=== PATIENT | female | born 1965 | race American Indian/Alaskan Native ===

== ENCOUNTER 2020-06-30 13:10 | Emergency (ER) | payer MEDICAID ==
[2020-06-30 14:46] VITALS: BP 162/69
--- NOTE | 2020-06-30 17:26 | XRay Report ---
LEFT SHOULDER 3 VIEWS 1523 INDICATION: glass globe hit shoulder COMPARISON: None available. FINDINGS: Artifact overlies the image. Rotator cuff calcifications are noted. No fractures or disloca tions are seen. Signer Name: Hayden Ahuja MD Signed: 06/30/2020 5:21 PM Workstation Name: [id number]
--- NOTE | 2020-06-30 18:10 | Cat Scan Report ---
CT HEAD WITHOUT CONTRAST INDICATION: glass globe hit head TECHNIQUE: All CT scans at this location are performed using CT dose reduction for ALARA by means of automated exposure control. COMPARISON: None available. FINDINGS: BRAIN: No hemorrhage or mass effect are seen. No evidence of acute infarction is noted. White matter microvascular changes are noted, more on the left. 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 Mild atrophic changes are seen disproportionate to the patient's age. ORBITS: Normal as visualized. SOFT TISSUES OF HEAD: Normal. CALVARIUM: Normal. VISUALIZED PARANASAL SINUSES AND MASTOID AIR CELLS: Clear. ADDITIONAL FINDINGS: None. IMPRESSION: No acute intracranial abnormality. Signer Name: Hayden Ahuja MD Signed: 06/30/2020 6:05 PM Workstation Name: [id number]
--- NOTE | 2020-06-30 18:17 | Emergency Department Report ---
ED Head Trauma HPI - General Chief complaint: Head Injury Stated complaint: HEAD PAIN Time Seen by Provider: 06/30/20 16:50 Source: EMS Mode of arrival: Wheelchair Limitations: No Limitations - History of Present Illness Initial comments: Patient is a 55-year-old female presents emergency room complaints of a head injury that occurred earlier today. She states that a glass down from a ceiling light fell onto her head and hit her left shoulder. She states that it caused her to have headache and shoulder pain. She states initially she felt a little lightheaded and had some mild blurry vision which have both resolved. She denies any loss of consciousness, vomiting, numbness, weakness, bowel or bladder incontinence. Past medical history of DM, HTN, HLD, [place] with CABG, stents in the legs and the heart, CVA, right leg amputation. She states that she is on Plavix but denies any other blood thinners. She has an allergy to Percocet, Metformin, and penicillin - Related Data Previous Rx's Medication Instructions Recorded Last Taken Type Acetaminophen [Tylenol] 650 mg PO Q8HR PRN #20 capsule 06/30/20 Unknown Rx methOCARBAMOL [Robaxin TAB] 500 mg PO BID PRN #14 tab 06/30/20 Unknown Rx Allergies/Adverse reactions: Allergies Allergy/AdvReac Type Severity Reaction Status Date / Time acetaminophen [From Percocet] Allergy Vomiting Verified 06/30/20 14:45 metformin Allergy Unknown Verified 06/30/20 14:45 oxycodone [From Percocet] Allergy Vomiting Verified 06/30/20 14:45 Penicillins Allergy Unknown Verified 06/30/20 14:45 ED Review of Systems ROS: Stated complaint: HEAD PAIN Other details as noted in HPI Comment: All other systems reviewed and negative ED Past Medical Hx - Past Medical History Previous Medical History?: Yes Hx Hypertension: Yes Hx CVA: Yes Hx Diabetes: Yes Additional medical history: BKA 04/2020 - Surgical History Past Surgical History?: Yes Hx Open Heart Surgery: Yes (6 stents) - Medications Home Medications: Home Medications Medication Instructions Recorded Confirmed Last Taken Type Acetaminophen [Tylenol] 650 mg PO Q8HR PRN #20 capsule 06/30/20 Unknown Rx methOCARBAMOL [Robaxin TAB] 500 mg PO BID PRN #14 tab 06/30/20 Unknown Rx ED Physical Exam - General Limitations: No Limitations - Head Head exam: Present: atraumatic, normocephalic - Eye Eye exam: Present: normal appearance, PERRL, EOMI. Absent: scleral icterus, conjunctival injection, nystagmus, periorbital swelling, periorbital tenderness - ENT ENT exam: Present: mucous membranes moist - Neck Neck exam: Present: normal inspection, full ROM. Absent: tenderness, meningismus - Respiratory Respiratory exam: Present: normal lung sounds bilaterally. Absent: respiratory distress, wheezes, rales, rhonchi, stridor, chest wall tenderness, accessory muscle use, decreased breath sounds, prolonged expiratory - Cardiovascular Cardiovascular Exam: Present: regular rate, normal rhythm, normal heart sounds. Absent: systolic murmur, diastolic murmur, rubs, gallop - Extremities Exam Extremities exam: Present: other (mild ttp to the left trapezius muscle, no bony ttp of the LUE, FROM of the LUE with discomfort upon full flexion, no edema or ecchymosis, no sulcus sign, clavicles are equal, no clavicular ttp, neurovascularly intact) - Neurological Exam Neurological exam: Present: alert, oriented X3, CN II-XII intact. Absent: motor sensory deficit - Psychiatric Psychiatric exam: Present: normal affect, normal mood - Skin Skin exam: Present: warm, dry, intact ED Course Vital Signs 06/30/20 14:46 Temperature 98.3 F Pulse Rate 64 Respiratory 18 Rate Blood Pressure 162/69 [Right] O2 Sat by Pulse 97 Oximetry - Radiology Data Radiology results: report reviewed Ordering Physician: RAQUEL PEREZ Date of Service: 06/30/20 Procedure(s): XR shoulder 2+V LT Accession Number(s): [id number] cc: RAQUEL PEREZ Fluoro Time In Minutes: LEFT SHOULDER 3 VIEWS 1523 INDICATION: glass globe hit shoulder COMPARISON: None available. FINDINGS: Artifact overlies the image. Rotator cuff calcifications are noted. No fractures or dislocations are seen. Signer Name: Hayden Ahuja MD Signed: 06/30/2020 5:21 PM Workstation Name: [id number] Transcribed By: YOON Dictated By: Hayden Ahuja MD Electronically Authenticated By: Hayden Ahuja MD Signed Date/Time: 06/30/201720 DD/ 19 TD/TT: Print Cancel Ordering Physician: RAQUEL PEREZ Date of Service: 06/30/20 Procedure(s): CT head/brain wo con Accession Number(s): [id number] cc: RAQUEL PEREZ CT HEAD WITHOUT CONTRAST INDICATION: glass globe hit head TECHNIQUE: All CT scans at this location are performed using CT dose reduction for ALARA by means of automated exposure control. COMPARISON: None available. FINDINGS: BRAIN: No hemorrhage or mass effect are seen. No evidence of acute infarction is noted. White matter microvascular changes are noted, more on the left. 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 Mild atrophic changes are seen disproportionate to the patient's age. ORBITS: Normal as visualized. SOFT TISSUES OF HEAD: Normal. CALVARIUM: Normal. VISUALIZED PARANASAL SINUSES AND MASTOID AIR CELLS: Clear. ADDITIONAL FINDINGS: None. IMPRESSION: No acute intracranial abnormality. Signer Name: Hayden Ahuja MD Signed: 06/30/2020 6:05 PM Workstation Name: [id number] Transcribed By: GJ Dictated By: Hayden Ahuja MD Electronically Authenticated By: Hayden Ahuja MD Signed Date/Time: 06/30/201804 DD/ 00 TD/TT: Print - Medical Decision Making Patient is a 55-year-old female presents emergency room complaints of a head injury that occurred earlier today. She states that a glass down from a ceiling light fell onto her head and hit her left shoulder. She states that it caused her to have headache and shoulder pain. She states initially she felt a little lightheaded and had some mild blurry vision which have both resolved. She denies any loss of consciousness, vomiting, numbness, weakness, bowel or bladder incontinence. Past medical history of DM, HTN, HLD, [place] with CABG, stents in the legs and the heart, CVA, right leg amputation. She states that she is on Plavix but denies any other blood thinners. She has an allergy to Percocet, Metformin, and penicillin. XR left shoulder: FINDINGS: Artifact overlies the image. Rotator cuff calcifications are noted. No fractures or dislocations are seen. CT head: IMPRESSION: No acute intracranial abnormality. Discussed all results with patient and answered questions. Given prescription for Tylenol and Robaxin. Advised patient Please take medication as prescribed as needed. Do not drive or operate machinery while taking muscle relaxer Robaxin. May use ice pack, heating pad, rest, and epsom salt bath. Follow-up with a primary care doctor. Return to emergency room for any new or worsening symptoms. - NEXUS Criteria Focal neurological deficit present: No Midline spinal tenderness present: No Altered level of consciousness: No Intoxication present: No Distracting injury present: No NEXUS results: C-Spine can be cleared clinically by these results. Imaging is not required. Critical care attestation.: If time is entered above; I have spent that time in minutes in the direct care of this critically ill patient, excluding procedure time. ED Disposition Clinical Impression: Head injury Qualifiers: Encounter type: initial encounter Qualified Code(s): S09.90XA - Unspecified injury of head, initial encounter Left shoulder pain Qualifiers: Chronicity: acute Qualified Code(s): M25.512 - Pain in left shoulder Disposition: DC-01 TO HOME OR SELFCARE Is pt being admited?: No Does the pt Need Aspirin: No Condition: Stable Instructions: Head Injury, Adult, Musculoskeletal Pain Additional Instructions: Please take medication as prescribed as needed. Do not drive or operate machine ry while taking muscle relaxer Robaxin. May use ice pack, heating pad, rest, and epsom salt bath. Follow-up with a primary care doctor. Return to emergency room for any new or worsening symptoms. Prescriptions: methOCARBAMOL [Robaxin TAB] 500 mg PO BID PRN #14 tab PRN Reason: pain/muscle spasm Acetaminophen [Tylenol] 650 mg PO Q8HR PRN #20 capsule PRN Reason: pain Referrals: your, primary care doctor [Other] - 2-3 Days Time of Disposition: 18:18 Print Language: ETHIOPIAN
== END 2020-06-30 18:51 | disposition home or self-care (01) ==
LOC: ED 13:10
DX: S09.90XA Unspecified injury of head, initial encounter (principal); M25.512 Pain in left shoulder; I10 Essential (primary) hypertension; E11.9 Type 2 diabetes mellitus without complications; Z98.890 Other specified postprocedural states; Z79.899 Other long term (current) drug therapy; Z86.73 Personal history of transient ischemic attack (TIA), and cerebral infarction without residual deficits; Z88.0 Allergy status to penicillin; Z88.8 Allergy status to other drugs, medicaments and biological substances; W22.8XXA Striking against or struck by other objects, initial encounter; Y93.89 Activity, other specified; Y92.89 Other specified places as the place of occurrence of the external cause; Y99.8 Other external cause status
CPT/HCPCS: 70450

== ENCOUNTER 2020-07-19 06:08 | Inpatient (IN) | payer MEDICAID ==
[2020-07-19] MEDS ORDERED: ASPIRIN 325 MG TAB PO ONE (06:19)
--- NOTE | 2020-07-19 06:47 | Emergency Department Report ---
ED Chest Pain HPI - General Chief Complaint: Chest Pain Stated Complaint: CHEST PAIN Time Seen by Provider: 07/19/20 06:36 Source: patient, EMS Mode of arrival: Stretcher Limitations: Physical Limitation - History of Present Illness Initial Comments: Patient is 55 years old female with multiple past medical history including SD with CABG, hypertension, diabetes and recent right below-knee amputation secondary to peripheral vascular disease. Patient brought to the emergency room complaining of sudden onset of chest pain. Patient stated that is on the right side. She described the pain as sharp with no radiation. Patient denied any fever or chills. Patient also denied any nausea or vomiting. MD Complaint: chest pain -: Sudden, This morning Onset: during rest Pain Location: right chest Severity scale (0 -10): 5 Quality: sharp - Related Data Previous Rx's Medication Instructions Recorded Last Taken Type Acetaminophen [Tylenol] 650 mg PO Q8HR PRN #20 capsule 06/30/20 Unknown Rx methOCARBAMOL [Robaxin TAB] 500 mg PO BID PRN #14 tab 06/30/20 Unknown Rx Allergies Allergy/AdvReac Type Severity Reaction Status Date / Time acetaminophen [From Percocet] Allergy Vomiting Verified 06/30/20 14:45 metformin Allergy Unknown Verified 06/30/20 14:45 oxycodone [From Percocet] Allergy Vomiting Verified 06/30/20 14:45 Penicillins Allergy Unknown Verified 06/30/20 14:45 Heart Score - HEART Score History: Slightly suspicious EKG: Non-specific Age: 45-65 Risk factors: > 3 risk factors or hx of atherosclerotic disease Troponin: < normal limit HEART Score: 4 - EKG Read Time Time EKG Completed: 06:48 EKG Read Time: 06:50 ED Review of Systems ROS: Stated complaint: CHEST PAIN Other details as noted in HPI Comment: All other systems reviewed and negative Constitutional: denies: chills, fever Respiratory: denies: cough, shortness of breath, wheezing Cardiovascular: chest pain. denies: palpitations, dyspnea on exertion Gastrointestinal: denies: abdominal pain, nausea, vomiting Musculoskeletal: denies: back pain Neurological: denies: headache ED Past Medical Hx - Past Medical History Previous Medical History?: Yes Hx Hypertension: Yes Hx CVA: Yes Hx Diabetes: Yes Additional medical history: BKA 04/2020 - Surgical History Past Surgical History?: Yes Hx Open Heart Surgery: Yes (6 stents) - Social History Smoking Status: Former Smoker Substance Use Type: None - Medications Home Medications: Home Medications Medication Instructions Recorded Confirmed Last Taken Type Acetaminophen [Tylenol] 650 mg PO Q8HR PRN #20 capsule 06/30/20 Unknown Rx methOCARBAMOL [Robaxin TAB] 500 mg PO BID PRN #14 tab 06/30/20 Unknown Rx ED Physical Exam - General Limitations: Physical Limitation General appearance: alert, in no apparent distress - Head Head exam: Present: atraumatic, normocephalic, normal inspection - Eye Eye exam: Present: normal appearance, PERRL - ENT ENT exam: Present: normal exam, normal orophraynx, mucous membranes moist - Neck Neck exam: Present: normal inspection, full ROM. Absent: tenderness, meningismus - Respiratory Respiratory exam: Present: normal lung sounds bilaterally - Cardiovascular Cardiovascular Exam: Present: regular rate, normal rhythm, normal heart sounds - GI/Abdominal GI/Abdominal exam: Present: soft, normal bowel sounds. Absent: distended, tenderness, guarding, rebound, rigid, organomegaly, mass, bruit, pulsatile mass, hernia - Extremities Exam Extremities exam: Present: other (Right below-knee amputation.) - Back Exam Back exam: Present: normal inspection, full ROM - Neurological Exam Neurological exam: Present: alert, oriented X3, CN II-XII intact - Skin Skin exam: Present: warm, intact, normal color ED Course Vital Signs 07/19/20 06:22 Temperature 98 F Pulse Rate 73 Respiratory 19 Rate Blood Pressure 175/104 [Left] O2 Sat by Pulse 99 Oximetry ED Medical Decision Making - Lab Data Result diagrams: 07/19/20 07:09 07/19/20 07:09 - EKG Data -: EKG Interpreted by Nm EKG shows normal: sinus rhythm Rate: normal - EKG Data Interpretation: no acute changes - Radiology Data Radiology results: report reviewed - Medical Decision Making Patient is 55 years old female with multiple past medical history including SD with CABG, hypertension, diabetes and recent right below-knee amputation secondary to peripheral vascular disease. Patient brought to the emergency room complaining of sudden onset of chest pain. Patient stated that is on the right side. She described the pain as sharp with no radiation. Patient denied any fever or chills. Patient also denied any nausea or vomiting. EKG showed no evidence of ST elevation. Labs reviewed and showed slightly elevated troponin. I discussed the patient with Dr. Osorio, artists' model on- call. Patient also discussed with , he agreed to admit the patient to medical service for further management. Critical Care Time: Yes Critical care time in (mins) excluding proc time.: 30 Critical care attestation.: If time is entered above; I have spent that time in minutes in the direct care of this critically ill patient, excluding procedure time. ED Disposition Clinical Impression: Non-STEMI (non-ST elevated myocardial infarction) Disposition: -09 OP ADMIT IP TO THIS HOSP Is pt being admited?: Yes Condition: Stable Referrals: PRIMARY CARE, [Primary Care Provider] - 3-5 Days
--- NOTE | 2020-07-19 06:58 | XRay Report ---
CHEST 1 VIEW INDICATION: chest pain COMPARISON: FINDINGS: SUPPORT DEVICES: None. HEART / MEDIASTINUM: No significant abnormality. LUNGS / PLEURA: No significant pulmonary or pleural abnormality. No pneumothorax. ADDITIONAL FINDINGS: IMPRESSION: 1. No acute cardiopulmonary disease Signer Name: Wilfredo Arriaga MD Signed: 07/19/2020 6:53 AM Workstation Name: [id number]
[2020-07-19 07:23] LABS: Basophils # (Auto) 0.1 K/mm3 (0.0-0.1); Basophils % (Auto) 1.2 % (0.0-1.8); Eosinophils # (Auto) 0.2 K/mm3 (0.0-0.4); Eosinophils % (Auto) 2.4 % (0.0-4.3); Hematocrit 33.9 % (30.3-42.9); Hemoglobin 11.4 gm/dl (10.1-14.3); Lymphocytes # (Auto) 2.2 K/mm3 (1.2-5.4); Mean Corpuscular HGB Conc 34 % (30-34); Mean Corpuscular Volume 82 fl (79-97); Monocytes # (Auto) 0.5 K/mm3 (0.0-0.8); Monocytes % (Auto) 6.6 % (0.0-7.3); Platelet Count 313 K/mm3 (140-440); Red Blood Count 4.14 M/mm3 (3.65-5.03)
[2020-07-19 07:38] LABS: INR 1.07 (0.87-1.13)
[2020-07-19 07:39] LABS: Partial Thromboplastin Time 30.3 Sec. (24.2-36.6)
[2020-07-19 07:48] LABS: Calcium 8.6 mg/dL (8.4-10.2)
[2020-07-19 11:21] LABS: Chol/HDL Ratio 6.6 %
--- NOTE | 2020-07-19 11:42 | Nuclear Medicine Report ---
NUCLEAR MEDICINE PERFUSION LUNG SCAN INDICATION / CLINICAL INFORMATION: Chest pain and elevated d-dimer. TECHNIQUE: 5.5 mCi of Tc-99m MAA were given by IV. COMPARISON: Chest radiograph dated 07/19/20 at 6:29 AM. FINDINGS: PERFUSION: No significant perfusion defects. ADDITIONAL FINDINGS: None. IMPRESSION: Very low probability for pulmonary embolism. Signer Name: Luke Marrero MD Signed: 07/19/2020 11:38 AM Workstation Name: [id number]
[2020-07-19] MEDS ORDERED: ALBUTEROL 2.5 MG/3 ML NEBU IH PRN (13:12)
[2020-07-19] MEDS ORDERED: NITROGLYCERIN 0.4 MG TAB SUBL SL PRN (13:12)
[2020-07-19] MEDS ORDERED: ACETAMINOPHEN 325 MG TAB PO PRN ×2 (13:12)
[2020-07-19] MEDS ORDERED: ONDANSETRON 4 MG/2 ML INJ IV PRN (13:12)
--- NOTE | 2020-07-19 13:12 | History and Physical Report ---
History of Present Illness Chief complaint: My chest hurts History of present illness: 55 YO Female HTN, CVA, DM, CAD S/P Stent Placement, PVD presents to ED for evaluation. Patient reports "my chest hurts. Patient states that she has experienced a sudden onset of pain in her chest that began 2 hours prior to transportation to the hospital. Patient states that pain is 57/10, intermittent, worsened with exertion, relieved with rest, sharp, crushing in nature, nonradiating, localized to the right side of the chest. EMS was notified and upon arrival the patient was found to be in distress and subsequently transported to [facility] for further care and evaluation of the aforementioned symptoms. The patient was seen and evaluated in the emergency department. All lab and imaging studies reviewed. Patient found to have non-ST elevation [place] complicated by angina, as well as accelerated hypertension. The patient admitted to telemetry and initiated on ACS protocol. Patient initiated on therapeutic anticoagulation. Cardiology team consulted in ED. Patient denies fever, chills, palpitations, productive cough, skin rash, recent ill contacts, unilateral leg swelling, calf pain, prolonged travel/immobility, ind ividual/family history of DVT/PE/bleeding/blood clotting disorders, or known exposure to COVID-19. No prior admission for review. No medication listed at time of admission for reconciliation. Past History Past Medical History: CAD, diabetes, hypertension, stroke Past Surgical History: Other (DKA, cardiac stent placement) Social history: single. denies: smoking, alcohol abuse, prescription drug abuse Family history: diabetes, hypertension Medications and Allergies Allergies Allergy/AdvReac Type Severity Reaction Status Date / Time acetaminophen [From Percocet] Allergy Vomiting Verified 06/30/20 14:45 metformin Allergy Unknown Verified 06/30/20 14:45 oxycodone [From Percocet] Allergy Vomiting Verified 06/30/20 14:45 Penicillins Allergy Unknown Verified 06/30/20 14:45 Home Medications Medication Instructions Recorded Confirmed Last Taken Type Acetaminophen [Tylenol] 650 mg PO Q8HR PRN #20 capsule 06/30/20 07/19/20 07/17/20 10:00 Rx methOCARBAMOL [Robaxin TAB] 500 mg PO BID PRN #14 tab 06/30/20 07/19/20 07/17/20 10:00 Rx Review of Systems Constitutional: no weight loss, no fever, no chills, no night sweats Ears, nose, mouth and throat: no ear pain, no tinnitis, no decreased hearing, no sinus pressure Breasts: no change in shape, no mass Cardiovascular: chest pain, no palpitations, no edema, no syncope, no paroxysmal nocturnal dyspnea, no high blood pressure Respiratory: no cough, no cough with sputum, no excessive sputum, no shortness of breath Gastrointestinal: nausea, vomiting, no abdominal pain, no diarrhea Genitourinary Female: no pelvic pain, no flank pain, no dysuria, no urinary frequency, no urgency Rectal: no pain, no incontinence, no bleeding Musculoskeletal: no neck pain, no leg numbness/tingling Integumentary: no deferred, no rash, no pruritis, no sores, no wounds, no jaundice Neurological: no head injury, no parathesias, no tingling, no ataxia Psychiatric: no memory loss, no change in sleep habits, no insomnia, no change in libido, no disorientation, no hallucinations Endocrine: no heat intolerance, no polyphagia, no nocturia, no proptosis, no palpatations, no recent glucocorticoid use Hematologic/Lymphatic: no easy bruising, no easy bleeding, no lymphadenopathy Allergic/Immunologic: no urticaria, no persistent infections Exam - Constitutional Vitals: Temp Pulse Resp BP Pulse Ox 98 F 73 19 175/104 99 07/19/20 06:22 07/19/20 06:22 07/19/20 06:22 07/19/20 06:22 07/19/20 06:22 General appearance: Present: mild distress - EENT Eyes: Present: PERRL ENT: hearing intact, clear oral mucosa - Neck Neck: Present: supple, normal ROM - Respiratory Respiratory effort: normal Respiratory: bilateral: CTA - Cardiovascular Heart Sounds: Present: S1 & S2. Absent: rub, click - Extremities Extremities: pulses symmetrical, No edema Peripheral Pulses: within normal limits - Abdominal General gastrointestinal: Present: soft, non-tender, non-distended, normal bowel sounds Female genitourinary: Present: normal - Integumentary Integumentary: Present: clear, warm, dry - Musculoskeletal Musculoskeletal: gait normal, strength equal bilaterally - Psychiatric Psychiatric: appropriate mood/affect, intact judgment & insight - Neurologic Neurologic: CNII-XII intact, moves all extremities HEART Score - HEART Score EKG: Non-specific Age: 45-65 Risk factors: > 3 risk factors or hx of atherosclerotic disease Troponin: Troponin T 0.060 ng/mL (0.00-0.029) H D 07/19/20 09:23 Troponin: < normal limit Results - Labs CBC & Chem 7: 07/19/20 13:20 07/19/20 13:20 Labs: Abnormal lab results 07/19/20 07/19/20 07/19/20 Range/Units 07:09 07:09 07:09 MCH 27 L (28-32) pg D-Dimer 981.95 H (0-234) ng/mlDDU Sodium 134 L (137-145) mmol/L Chloride 96.6 L (98-107) mmol/L Creatinine 1.5 H (0.6-1.2) mg/dL Glucose 385 H (65-100) mg/dL Troponin T (0.00-0.029) ng/mL Albumin 3.0 L (3.9-5) g/dL Triglycerides (2-149) mg/dL Cholesterol (50-199) mg/dL LDL Cholesterol Direct (50-130) mg/dL HDL Cholesterol (40-59) mg/dL 07/19/20 Range/Units 09:23 MCH (28-32) pg D-Dimer (0-234) ng/mlDDU Sodium (137-145) mmol/L Chloride (98-107) mmol/L Creatinine (0.6-1.2) mg/dL Glucose (65-100) mg/dL Troponin T 0.060 H D (0.00-0.029) ng/mL Albumin (3.9-5) g/dL Triglycerides 216 H (2-149) mg/dL Cholesterol 218 H (50-199) mg/dL LDL Cholesterol Direct 156 H (50-130) mg/dL HDL Cholesterol 33 L (40-59) mg/dL Assessment and Plan - Patient Problems (1) Non-STEMI (non-ST elevated myocardial infarction) Current Visit: Yes Status: Acute Plan to address problem: Serial cardiac enzymes, EKG, therapeutic anticoagulation, cardiology team consulted in the emergency department, telemetry monitoring, morphine, submental oxygen, nitro, aspirin, supportive care, blood pressure control. (2) Angina at rest Current Visit: Yes Status: Acute Plan to address problem: Serial cardiac enzymes, EKG, pain control, supportive care. (3) Accelerated hypertension Current Visit: Yes Status: Acute Plan to address problem: Monitor blood pressure every shift, continue medical management, hydralazine 10 mg IV every 6 hours as needed for systolic blood pressure greater than or equal to 155 mmHg (4) Diabetes Current Visit: Yes Status: Acute Plan to address problem: Consistent carbohydrate diet, Accu-Chek, insulin protocol, hypoglycemia protocol (5) DVT prophylaxis Current Visit: Yes Status: Acute Plan to address problem: SCD bilateral lower extremities while in bed, therapeutic anticoagulation.
[2020-07-19 13:42] LABS: Basophils # (Auto) 0.1 K/mm3 (0.0-0.1); Basophils % (Auto) 1.1 % (0.0-1.8); Eosinophils # (Auto) 0.1 K/mm3 (0.0-0.4); Eosinophils % (Auto) 1.9 % (0.0-4.3); Hematocrit 34.6 % (30.3-42.9); Hemoglobin 11.8 gm/dl (10.1-14.3); Lymphocytes # (Auto) 2.7 K/mm3 (1.2-5.4); Lymphocytes % (Auto) 39.4 % (13.4-35.0); Mean Corpuscular HGB Conc 34 % (30-34); Mean Corpuscular Volume 83 fl (79-97); Monocytes # (Auto) 0.5 K/mm3 (0.0-0.8); Monocytes % (Auto) 6.7 % (0.0-7.3); Platelet Count 307 K/mm3 (140-440); Red Blood Count 4.17 M/mm3 (3.65-5.03); Red Cell Distribution Width 14.4 % (13.2-15.2)
[2020-07-19] MEDS ORDERED: ENOXAPARIN 100 MG/1 ML INJ SUB-Q SCH (16:20)
[2020-07-19] MEDS: traMADol 50 MG TAB PO PRN (18:15)
[2020-07-19] MEDS: hydrALAZINE 20 MG/1 ML INJ IV PRN (18:16)
[2020-07-19] MEDS: INSULIN LISPRO 100 UNIT/ML SUB-Q SCH ×2 (18:26→21:45)
[2020-07-19] MEDS: METOPROLOL TARTRATE 25 MG TAB PO SCH (21:44)
[2020-07-20 05:36] LABS: Basophils # (Auto) 0.1 K/mm3 (0.0-0.1); Basophils % (Auto) 1.3 % (0.0-1.8); Eosinophils # (Auto) 0.3 K/mm3 (0.0-0.4); Eosinophils % (Auto) 3.4 % (0.0-4.3); Hematocrit 34.2 % (30.3-42.9); Hemoglobin 11.5 gm/dl (10.1-14.3); Lymphocytes # (Auto) 3.3 K/mm3 (1.2-5.4); Mean Corpuscular HGB Conc 34 % (30-34); Mean Corpuscular Volume 82 fl (79-97); Monocytes # (Auto) 0.6 K/mm3 (0.0-0.8); Monocytes % (Auto) 7.9 % (0.0-7.3); Platelet Count 325 K/mm3 (140-440); Red Blood Count 4.18 M/mm3 (3.65-5.03); Red Cell Distribution Width 14.7 % (13.2-15.2)
[2020-07-20 05:53] LABS: Alanine Aminotransferase 7 units/L (7-56); Albumin 2.8 g/dL (3.9-5); BUN/Creatinine Ratio 11; Blood Urea Nitrogen 17 mg/dL (7-17); Calcium 8.4 mg/dL (8.4-10.2); Hemolysis Index 0
--- NOTE | 2020-07-20 08:24 | Progress Note ---
Assessment and Plan Assessment and plan: NSTEMI. Accelerated hypertension Diabetes mellitus type 2 Hyperlipidemia History of CVA 07/20. Continue therapeutic Lovenox for anticoagulation. Echocardiogram pending. Await cardiology consultation and recommendations for ischemic evaluation. Continue hydralazine as needed for BP control. Continue aspirin and Lipitor. History Interval history: No new issues overnight Hospitalist Physical - Constitutional Vitals: Temp Pulse Resp BP Pulse Ox 98.2 F 78 16 147/66 100 07/20/20 03:41 07/20/20 03:41 07/20/20 03:41 07/20/20 03:41 07/20/20 03:41 General appearance: Present: mild distress - EENT Eyes: Present: PERRL, EOM intact ENT: hearing intact, clear oral mucosa, dentition normal - Neck Neck: Present: supple, normal ROM - Respiratory Respiratory effort: normal Respiratory: bilateral: CTA - Cardiovascular Rhythm: regular Heart Sounds: Present: S1 & S2. Absent: gallop, rub - Extremities Extremities: no ischemia, No edema, Full ROM - Abdominal General gastrointestinal: soft, non-tender, non-distended, normal bowel sounds - Integumentary Integumentary: Present: clear, warm, dry - Neurologic Neurologic: CNII-XII intact, moves all extremities HEART Score - HEART Score EKG: Non-specific Age: 45-65 Risk factors: > 3 risk factors or hx of atherosclerotic disease Troponin: Troponin T 0.174 ng/mL (0.00-0.029) H* 07/19/20 20:28 Troponin: < normal limit Results - Labs CBC & Chem 7: 07/20/20 04:53 07/20/20 04:53 Labs: Laboratory Last Values WBC 7.7 K/mm3 (4.5-11.0) 07/20/20 04:53 RBC 4.18 M/mm3 (3.65-5.03) 07/20/20 04:53 Hgb 11.5 gm/dl (10.1-14.3) 07/20/20 04:53 Hct 34.2 % (30.3-42.9) 07/20/20 04:53 MCV 82 fl (79-97) 07/20/20 04:53 MCH 28 pg (28-32) 07/20/20 04:53 MCHC 34 % (30-34) 07/20/20 04:53 RDW 14.7 % (13.2-15.2) 07/20/20 04:53 Plt Count 325 K/mm3 (140-440) 07/20/20 04:53 Lymph % (Auto) 42.0 % (13.4-35.0) H 07/20/20 04:53 [place] % (Auto) 7.9 % (0.0-7.3) H 07/20/20 04:53 Eos % (Auto) 3.4 % (0.0-4.3) 07/20/20 04:53 Baso % (Auto) 1.3 % (0.0-1.8) 07/20/20 04:53 Lymph # (Auto) 3.3 K/mm3 (1.2-5.4) 07/20/20 04:53 [place] # (Auto) 0.6 K/mm3 (0.0-0.8) 07/20/20 04:53 Eos # (Auto) 0.3 K/mm3 (0.0-0.4) 07/20/20 04:53 Baso # (Auto) 0.1 K/mm3 (0.0-0.1) 07/20/20 04:53 Seg Neutrophils % 45.4 % (40.0-70.0) 07/20/20 04:53 Seg Neutrophils # 3.5 K/mm3 (1.8-7.7) 07/20/20 04:53 PT 13.8 Sec. (12.2-14.9) 07/19/20 07:09 INR 1.07 (0.87-1.13) 07/19/20 07:09 APTT 30.3 Sec. (24.2-36.6) 07/19/20 07:09 D-Dimer 981.95 ng/mlDDU (0-234) H 07/19/20 07:09 Sodium 137 mmol/L (137-145) 07/20/20 04:53 Potassium 3.3 mmol/L (3.6-5.0) L 07/20/20 04:53 Chloride 101.3 mmol/L (98-107) 07/20/20 04:53 Carbon Dioxide 29 mmol/L (22-30) 07/20/20 04:53 Anion Gap 10 mmol/L 07/20/20 04:53 BUN 17 mg/dL (7-17) 07/20/20 04:53 Creatinine 1.5 mg/dL (0.6-1.2) H 07/20/20 04:53 Estimated GFR 44 ml/min 07/20/20 04:53 BUN/Creatinine Ratio 11 % 07/20/20 04:53 Glucose 177 mg/dL (65-100) H 07/20/20 04:53 POC Glucose 391 mg/dL (70-105) H 07/19/20 20:40 Calcium 8.4 mg/dL (8.4-10.2) 07/20/20 04:53 Total Bilirubin < 0.20 mg/dL (0.1-1.2) 07/20/20 04:53 AST 13 units/L (5-40) 07/20/20 04:53 ALT 7 units/L (7-56) 07/20/20 04:53 Alkaline Phosphatase 94 units/L (35-129) 07/20/20 04:53 Troponin T 0.174 ng/mL (0.00-0.029) H* 07/19/20 20:28 NT-Pro-B Natriuret Pep 1460 pg/mL (0-900) H 07/19/20 16:11 Total Protein 6.2 g/dL (6.3-8.2) L 07/20/20 04:53 Albumin 2.8 g/dL (3.9-5) L 07/20/20 04:53 Albumin/Globulin Ratio 0.8 % 07/20/20 04:53 Triglycerides 216 mg/dL (2-149) H 07/19/20 09:23 Cholesterol 218 mg/dL (50-199) H 07/19/20 09:23 LDL Cholesterol Direct 156 mg/dL (50-130) H 07/19/20 09:23 HDL Cholesterol 33 mg/dL (40-59) L 07/19/20 09:23 Cholesterol/HDL Ratio 6.60 % 07/19/20 09:23 Active Medications - Current Medications Current Medications: Generic Name Dose Route Start Last Admin Trade Name Freq PRN Reason Stop Dose Admin Acetaminophen 650 mg 07/19/20 13:12 Acetaminophen 325 Mg Tab PO Q4H PRN Pain MILD(1-3)/Fever >100.5/BARBOSA Albuterol 2.5 mg 07/19/20 13:12 Albuterol 2.5 Mg/3 Ml Nebu IH Q4HRT PRN Shortness Of Breath Atorvastatin Calcium 40 mg 07/19/20 22:00 07/19/20 21:44 Atorvastatin 40 Mg Tab PO 40 mg QHS SERVANDO Administration Enoxaparin Sodium 70 mg 07/20/20 10:00 Enoxaparin 80 Mg/0.8 Ml Inj SUB-Q Q12HR SERVANDO Protocol Hydralazine HCl 10 mg 07/19/20 16:25 07/19/20 18:16 Hydralazine 20 Mg/1 Ml Inj IV 10 mg Q6HR PRN Administration Hypertension Insulin Human Lispro 0 unit 07/19/20 18:30 07/19/20 21:45 Insulin Lispro 100 Unit/Ml SUB-Q 8 unit ACHS SERVANDO Administration Protocol Metoprolol Tartrate 12.5 mg 07/19/20 22:00 07/19/20 21:44 Metoprolol Tartrate 25 Mg Tab PO 12.5 mg BID SERVANDO Administration Nitroglycerin 0.4 mg 07/19/20 13:12 07/19/20 18:48 Nitroglycerin 0.4 Mg Tab Subl SL 0.4 mg Q5M PRN Administration Chest Pain Ondansetron HCl 4 mg 07/19/20 13:12 Ondansetron 4 Mg/2 Ml Inj IV Q8H PRN Nausea And Vomiting Sodium Chloride 10 ml 07/19/20 22:00 07/19/20 21:45 Sodium Chloride 0.9% 10 Ml Flush Syringe IV 10 ml BID SERVANDO Administration Sodium Chloride 10 ml 07/19/20 14:12 Sodium Chloride 0.9% 10 Ml Flush Syringe IV PRN PRN LINE FLUSH Sodium Chloride 10 ml 07/19/20 14:12 Sodium Chloride 0.9% 10 Ml Flush Syringe IV PRN PRN LINE FLUSH Tramadol HCl 50 mg 07/19/20 13:12 07/19/20 18:15 Tramadol 50 Mg Tab PO 50 mg Q6H PRN Administration Pain, Moderate (4-6)
[2020-07-20] MEDS: ENOXAPARIN 80 MG/0.8 ML INJ SUB-Q SCH ×2 (10:30→21:03)
[2020-07-20] MEDS: METOPROLOL TARTRATE 25 MG TAB PO SCH ×2 (10:30→21:05)
[2020-07-20] MEDS: traMADol 50 MG TAB PO PRN ×2 (10:51→19:12)
[2020-07-20] MEDS: INSULIN LISPRO 100 UNIT/ML SUB-Q SCH ×4 (10:56→21:03)
--- NOTE | 2020-07-20 11:33 | Event Note ---
Full consultation dictated. Thank you.
[2020-07-20] MEDS: hydrALAZINE 20 MG/1 ML INJ IV PRN (15:16)
--- NOTE | 2020-07-20 15:20 | Consultation ---
DATE OF CONSULTATION: 07/20/2020 REFERRING PHYSICIAN: Hospitalist service. REASON FOR CONSULTATION: Advice and opinion regarding abnormal troponin. HISTORY OF PRESENT ILLNESS: The patient is a 55-year-old -[place] female with a history of hypertension, CVA, diabetes, coronary artery bypass surgery, PCI, PVD with bilateral BKA, presents here for cardiac evaluation. She has been having chest pain which is sharp, different from prior episodes, intermittent. She is seen on telemetry today and is chest pain free. This is different from previous episodes of chest pain per patient. She has moved back and forth from [place], is now living here for the past few months. No fevers, chills, nausea or vomiting. Currently, chest pain free and eating breakfast, nurse at bedside, states that she feels much better. She has had issues with chronic kidney disease. She lives in [place], was going to see Nephrology as well. No syncope, presyncope, blurred vision, stroke-like symptoms, rash, abdominal pain, hematochezia or hematemesis. PAST MEDICAL HISTORY: As aforementioned. PAST SURGICAL HISTORY: As aforementioned. SOCIAL HISTORY: She quit smoking and drinking years ago. FAMILY HISTORY: Diabetes and hypertension. ALLERGIES: ACETAMINOPHEN, MORPHINE, OXYCODONE, PENICILLIN. MEDICATIONS: Inpatient and outpatient medications reviewed. REVIEW OF SYSTEMS: As per HPI. PHYSICAL EXAMINATION: VITAL SIGNS: Blood pressure is 140/60. She is afebrile. Tele reveals sinus rhythm, no dysrhythmias. O2 sat is 100% on room air. GENERAL: This is a middle-aged -[place] female in no apparent distress, oriented x3. HEENT: Sclerae are anicteric. PERRLA. NECK: Supple, no mass, no JVD. CHEST: Clear to auscultation bilaterally. Good air movement. CARDIOVASCULAR: Regular rhythm, S1, S2. ABDOMEN: Soft, nontender, nondistended, normoactive bowel sounds in 4 quadrants. No mass or bruits. EXTREMITIES: No cyanosis, clubbing, edema. Good peripheral pulses. Bilateral BKA. DATA: ECG reveals sinus rhythm, PACs, LVH, no acute ST segment shift. LABORATORY DATA: Troponin is 0.14, 0.20, 0.17. GFR is estimated at 44, creatinine is 1.5, potassium 3.8. Initial blood pressures are 209/70. Chest x-ray is unremarkable per Radiology. V/Q scan also is negative. ASSESSMENT AND PLAN: In summary, the patient is a pleasant 55-year-old -[place] female: 1. Chest pain with mostly atypical features compared to prior episodes, now chest pain free. Troponin mildly elevated, but flat. Also, with hypertensive emergency/crisis and chronic kidney disease with GFR of approximately 40, now chest pain free, feeling back to normal, EKG without acute ST segment shift. It should be noted that she has a prior history of coronary artery bypass surgery, PCI, CVA, diabetes, hypertension. Level of compliance is unclear. She has been moving back and forth from [place] to [place]. Again, at this point, she is entirely stable. At this point, continue current medications including Lipitor, metoprolol, aspirin. Follow up echocardiography. Recommend Nephrology consultation. Consider ischemic evaluation, stress test versus a heart catheterization. Given her chronic kidney disease, elevated GFR and the fact that she is chest pain free, would lean towards stress testing unless she develops further chest pain. Thank you for this consultation. We will follow along. TID: [id number] RECEIPT: [id number] SBM/KENY
[2020-07-20] MEDS: ASPIRIN 325 MG TAB PO SCH (19:11)
[2020-07-20] MEDS ORDERED: diphenhydrAMINE 50 MG/ML VIAL IV ONE (21:50)
[2020-07-21] MEDS: hydrALAZINE 20 MG/1 ML INJ IV PRN (04:47)
[2020-07-21] MEDS: diphenhydrAMINE 25 MG CAP PO PRN ×2 (05:12→19:39)
[2020-07-21] MEDS: INSULIN LISPRO 100 UNIT/ML SUB-Q SCH ×4 (08:03→21:31)
--- NOTE | 2020-07-21 08:21 | Progress Note ---
Assessment and Plan Assessment and plan: NSTEMI. Accelerated hypertension Chronic kidney disease. Diabetes mellitus type 2 Hyperlipidemia History of CVA 07/20. Continue therapeutic Lovenox for anticoagulation. Echocardiogram pending. Await cardiology consultation and recommendations for ischemic evaluation. Continue hydralazine as needed for BP control. Continue aspirin and Lipitor. 07/21. Echocardiogram reveals left ventricular size normal with systolic function also normal. EF 55 to 60%. VQ scan negative for PE. Creatinine has remained stable at 1.5. I suspect patient has chronic kidney disease. We do not have a baseline creatinine to compare. However, if cardiology to consider ischemic evaluation with cardiac catheterization, we will obtain nephrology consultation for further assistance with management. History Interval history: No new issues overnight Hospitalist Physical - Constitutional Vitals: Temp Pulse Resp BP Pulse Ox 98.0 F 81 17 150/59 98 07/21/20 08:04 07/21/20 08:04 07/21/20 08:04 07/21/20 08:04 07/21/20 08:04 General appearance: Present: mild distress - EENT Eyes: Present: PERRL, EOM intact ENT: hearing intact, clear oral mucosa, dentition normal - Neck Neck: Present: supple, normal ROM - Respiratory Respiratory effort: normal Respiratory: bilateral: CTA - Cardiovascular Rhythm: regular Heart Sounds: Present: S1 & S2. Absent: gallop, rub - Extremities Extremities: no ischemia, No edema, Full ROM - Abdominal General gastrointestinal: soft, non-tender, non-distended, normal bowel sounds - Integumentary Integumentary: Present: clear, warm, dry - Neurologic Neurologic: CNII-XII intact, moves all extremities HEART Score - HEART Score EKG: Non-specific Age: 45-65 Risk factors: > 3 risk factors or hx of atherosclerotic disease Troponin: Troponin T 0.174 ng/mL (0.00-0.029) H* 07/19/20 20:28 Troponin: < normal limit Results - Labs CBC & Chem 7: 07/20/20 04:53 07/20/20 04:53 Labs: Laboratory Last Values WBC 7.7 K/mm3 (4.5-11.0) 07/20/20 04:53 RBC 4.18 M/mm3 (3.65-5.03) 07/20/20 04:53 Hgb 11.5 gm/dl (10.1-14.3) 07/20/20 04:53 Hct 34.2 % (30.3-42.9) 07/20/20 04:53 MCV 82 fl (79-97) 07/20/20 04:53 MCH 28 pg (28-32) 07/20/20 04:53 MCHC 34 % (30-34) 07/20/20 04:53 RDW 14.7 % (13.2-15.2) 07/20/20 04:53 Plt Count 325 K/mm3 (140-440) 07/20/20 04:53 Lymph % (Auto) 42.0 % (13.4-35.0) H 07/20/20 04:53 [place] % (Auto) 7.9 % (0.0-7.3) H 07/20/20 04:53 Eos % (Auto) 3.4 % (0.0-4.3) 07/20/20 04:53 Baso % (Auto) 1.3 % (0.0-1.8) 07/20/20 04:53 Lymph # (Auto) 3.3 K/mm3 (1.2-5.4) 07/20/20 04:53 [place] # (Auto) 0.6 K/mm3 (0.0-0.8) 07/20/20 04:53 Eos # (Auto) 0.3 K/mm3 (0.0-0.4) 07/20/20 04:53 Baso # (Auto) 0.1 K/mm3 (0.0-0.1) 07/20/20 04:53 Seg Neutrophils % 45.4 % (40.0-70.0) 07/20/20 04:53 Seg Neutrophils # 3.5 K/mm3 (1.8-7.7) 07/20/20 04:53 PT 13.8 Sec. (12.2-14.9) 07/19/20 07:09 INR 1.07 (0.87-1.13) 07/19/20 07:09 APTT 30.3 Sec. (24.2-36.6) 07/19/20 07:09 D-Dimer 981.95 ng/mlDDU (0-234) H 07/19/20 07:09 Sodium 137 mmol/L (137-145) 07/20/20 04:53 Potassium 3.3 mmol/L (3.6-5.0) L 07/20/20 04:53 Chloride 101.3 mmol/L (98-107) 07/20/20 04:53 Carbon Dioxide 29 mmol/L (22-30) 07/20/20 04:53 Anion Gap 10 mmol/L 07/20/20 04:53 BUN 17 mg/dL (7-17) 07/20/20 04:53 Creatinine 1.5 mg/dL (0.6-1.2) H 07/20/20 04:53 Estimated GFR 44 ml/min 07/20/20 04:53 BUN/Creatinine Ratio 11 % 07/20/20 04:53 Glucose 177 mg/dL (65-100) H 07/20/20 04:53 POC Glucose 260 mg/dL (70-105) H 07/20/20 20:12 Calcium 8.4 mg/dL (8.4-10.2) 07/20/20 04:53 Total Bilirubin < 0.20 mg/dL (0.1-1.2) 07/20/20 04:53 AST 13 units/L (5-40) 07/20/20 04:53 ALT 7 units/L (7-56) 07/20/20 04:53 Alkaline Phosphatase 94 units/L (35-129) 07/20/20 04:53 Troponin T 0.174 ng/mL (0.00-0.029) H* 07/19/20 20:28 NT-Pro-B Natriuret Pep 1460 pg/mL (0-900) H 07/19/20 16:11 Total Protein 6.2 g/dL (6.3-8.2) L 07/20/20 04:53 Albumin 2.8 g/dL (3.9-5) L 07/20/20 04:53 Albumin/Globulin Ratio 0.8 % 07/20/20 04:53 Triglycerides 216 mg/dL (2-149) H 07/19/20 09:23 Cholesterol 218 mg/dL (50-199) H 07/19/20 09:23 LDL Cholesterol Direct 156 mg/dL (50-130) H 07/19/20 09:23 HDL Cholesterol 33 mg/dL (40-59) L 07/19/20 09:23 Cholesterol/HDL Ratio 6.60 % 07/19/20 09:23 Sommer/IV: Voiding Method Toilet Active Medications - Current Medications Current Medications: Generic Name Dose Route Start Last Admin Trade Name Freq PRN Reason Stop Dose Admin Acetaminophen 650 mg 07/19/20 13:12 Acetaminophen 325 Mg Tab PO Q4H PRN Pain MILD(1-3)/Fever >100.5/BARBOSA Albuterol 2.5 mg 07/19/20 13:12 Albuterol 2.5 Mg/3 Ml Nebu IH Q4HRT PRN Shortness Of Breath Aspirin 325 mg 07/20/20 12:00 07/20/20 19:11 Aspirin 325 Mg Tab PO 325 mg QDAY SERVANDO Administration Atorvastatin Calcium 40 mg 07/19/20 22:00 07/20/20 21:02 Atorvastatin 40 Mg Tab PO 40 mg QHS SERVANDO Administration Diphenhydramine HCl 25 mg 07/21/20 04:57 07/21/20 05:12 Diphenhydramine 25 Mg Cap PO 25 mg BID PRN Administration Itching Enoxaparin Sodium 70 mg 07/20/20 10:00 07/20/20 21:03 Enoxaparin 80 Mg/0.8 Ml Inj SUB-Q 70 mg Q12HR SERVANDO Administration Protocol Hydralazine HCl 10 mg 07/19/20 16:25 07/21/20 04:47 Hydralazine 20 Mg/1 Ml Inj IV 10 mg Q6HR PRN Administration Hypertension Insulin Human Lispro 0 unit 07/19/20 18:30 07/21/20 08:03 Insulin Lispro 100 Unit/Ml SUB-Q Not Given ACHS [facility] Protocol Metoprolol Tartrate 12.5 mg 07/19/20 22:00 07/20/20 21:05 Metoprolol Tartrate 25 Mg Tab PO 12.5 mg BID SERVANDO Administration Nitroglycerin 0.4 mg 07/19/20 13:12 07/19/20 18:48 Nitroglycerin 0.4 Mg Tab Subl SL 0.4 mg Q5M PRN Administration Chest Pain Ondansetron HCl 4 mg 07/19/20 13:12 Ondansetron 4 Mg/2 Ml Inj IV Q8H PRN Nausea And Vomiting Sodium Chloride 10 ml 07/19/20 22:00 07/20/20 21:03 Sodium Chloride 0.9% 10 Ml Flush Syringe IV 10 ml BID SERVANDO Administration Sodium Chloride 10 ml 07/19/20 14:12 Sodium Chloride 0.9% 10 Ml Flush Syringe IV PRN PRN LINE FLUSH Tramadol HCl 50 mg 07/19/20 13:12 07/20/20 19:12 Tramadol 50 Mg Tab PO 50 mg Q6H PRN Administration Pain, Moderate (4-6)
[2020-07-21] MEDS: ENOXAPARIN 80 MG/0.8 ML INJ SUB-Q SCH ×2 (09:41→21:31)
[2020-07-21] MEDS: ASPIRIN 325 MG TAB PO SCH (09:42)
[2020-07-21] MEDS: METOPROLOL TARTRATE 25 MG TAB PO SCH ×2 (09:42→21:32)
[2020-07-21] MEDS ORDERED: POTASSIUM CHLORIDE ER 20 MEQ TAB PO SCH (10:00)
--- NOTE | 2020-07-21 11:26 | Progress Note ---
Assessment and Plan Please see my detailed dictated note from yesterday Patient is clinically stable and asymptomatic at this point. We will proceed with nuclear stress test in a.m. given patient's chronic kidney disease and low GFR. Echocardiogram is reviewed with patient. Blood pressure control is improved. Continue metoprolol, statin, and aspirin. Patient not on SHAYY or ARB due to chronic kidney disease. Nephrology consultation is pending. We will follow along thank you - Patient Problems (1) Accelerated hypertension Current Visit: Yes Status: Acute (2) Angina at rest Current Visit: Yes Status: Acute (3) Diabetes Current Visit: Yes Status: Acute (4) Non-STEMI (non-ST elevated myocardial infarction) Current Visit: Yes Status: Acute Subjective Date of service: 07/21/20 Interval history: No symptoms whatsoever overnight. Feels great. No chest pain or shortness of breath. Objective Vital Signs Temp Pulse Resp BP BP Pulse Ox 07/21/20 11:13 100 07/21/20 09:42 99 H 145/75 07/21/20 08:04 98.0 F 81 17 150/59 98 07/21/20 05:12 69 138/77 07/21/20 04:27 62 07/21/20 03:24 98.1 F 78 16 168/82 99 07/21/20 00:07 72 07/20/20 23:22 97.9 F 74 17 155/74 99 07/20/20 20:10 65 07/20/20 19:46 97 07/20/20 19:18 98.3 F 91 H 16 167/64 97 07/20/20 16:32 97.9 F 83 16 126/55 100 07/20/20 15:16 179/92 07/20/20 11:50 97.9 F 16 179/72
[2020-07-21] MEDS: traMADol 50 MG TAB PO PRN (16:30)
--- NOTE | 2020-07-21 17:38 | Consultation ---
History of Present Illness - Reason for Consult Consult date: 07/21/20 chronic renal failure - History of Present Illness The patient is a 55 YO female with history significant for DM type 2, HTN, CVA, CAD s/p stent, s/p CABG, PVD and CKD who presented to [facility] ED 07/19 with c/o R sided chest pain. Patient states that the pain is sudden in onset, 57/10, intermittent, worsened with exertion, relieved with rest, sharp, nonradiating and localized to the right side of the chest. Her pain is much better now. Patient denies fever, chills, palpitations, dizziness, cough, skin rash, recent ill contacts, leg swelling or known exposure to COVID-19. Her initial BP was 209/71. Patient was admitted with suspected non-ST elevation NH and accelerated hypertension. Labs significant for Creat 1.5, BUN 14 and Troponin 0.203. Nephrology was consulted for further evaluation of decreased GFR. Past History Past Medical History: CAD, diabetes, hypertension, renal failure, stroke Past Surgical History: Other (DKA, cardiac stent placement) Social history: single. denies: smoking, alcohol abuse, prescription drug abuse Family history: diabetes, hypertension Medications and Allergies Allergies Allergy/AdvReac Type Severity Reaction Status Date / Time acetaminophen [From Percocet] Allergy Vomiting Verified 06/30/20 14:45 metformin Allergy Unknown Verified 06/30/20 14:45 oxycodone [From Percocet] Allergy Vomiting Verified 06/30/20 14:45 Penicillins Allergy Unknown Verified 06/30/20 14:45 Home Medications Medication Instructions Recorded Confirmed Last Taken Type Acetaminophen [Tylenol] 650 mg PO Q8HR PRN #20 capsule 06/30/20 07/19/20 07/17/20 10:00 Rx methOCARBAMOL [Robaxin TAB] 500 mg PO BID PRN #14 tab 06/30/20 07/19/20 07/17/20 10:00 Rx Active Meds: Active Medications Acetaminophen (Acetaminophen 325 Mg Tab) 650 mg PO Q4H PRN PRN Reason: Pain MILD(1-3)/Fever >100.5/BARBOSA Albuterol (Albuterol 2.5 Mg/3 Ml Nebu) 2.5 mg IH Q4HRT PRN PRN Reason: Shortness Of Breath Aspirin (Aspirin 325 Mg Tab) 325 mg PO QDAY SERVANDO Last Admin: 07/21/20 09:42 Dose: 325 mg Documented by: Atorvastatin Calcium (Atorvastatin 40 Mg Tab) 40 mg PO QHS PENDING [facility] TO [facility] Last Admin: 07/20/20 21:02 Dose: 40 mg Documented by: Diphenhydramine HCl (Diphenhydramine 25 Mg Cap) 25 mg PO BID PRN PRN Reason: Itching Last Admin: 07/21/20 05:12 Dose: 25 mg Documented by: Enoxaparin Sodium (Enoxaparin 80 Mg/0.8 Ml Inj) 70 mg SUB-Q Q12HR PENDING S[facility] TO [facility]; Protocol Last Admin: 07/21/20 09:41 Dose: 70 mg Documented by: Hydralazine HCl (Hydralazine 20 Mg/1 Ml Inj) 10 mg IV Q6HR PRN PRN Reason: Hypertension Last Admin: 07/21/20 04:47 Dose: 10 mg Documented by: Insulin Human Lispro (Insulin Lispro 100 Unit/Ml) 0 unit SUB-Q ACHS PENDING S[facility] TO [facility]; Protocol Last Admin: 07/21/20 16:31 Dose: 8 unit Documented by: Metoprolol Tartrate (Metoprolol Tartrate 25 Mg Tab) 12.5 mg PO BID PENDING [facility] TO [facility] Last Admin: 07/21/20 09:42 Dose: 12.5 mg Documented by: Nitroglycerin (Nitroglycerin 0.4 Mg Tab Subl) 0.4 mg SL Q5M PRN PRN Reason: Chest Pain Last Admin: 07/19/20 18:48 Dose: 0.4 mg Documented by: Ondansetron HCl (Ondansetron 4 Mg/2 Ml Inj) 4 mg IV Q8H PRN PRN Reason: Nausea And Vomiting Sodium Chloride (Sodium Chloride 0.9% 10 Ml Flush Syringe) 10 ml IV BID PENDING [facility] Last Admin: 07/21/20 09:43 Dose: 10 ml Documented by: Sodium Chloride (Sodium Chloride 0.9% 10 Ml Flush Syringe) 10 ml IV PRN PRN PRN Reason: LINE FLUSH Tramadol HCl (Tramadol 50 Mg Tab) 50 mg PO Q6H PRN PRN Reason: Pain, Moderate (4-6) Last Admin: 07/21/20 16:30 Dose: 50 mg Documented by: Review of Systems Constitutional: no weight loss, no weight gain, no fever, no chills, no anorexia, no weakness Breasts: deferred Cardiovascular: chest pain, high blood pressure, no orthopnea, no palpitations, no edema, no syncope, no lightheadedness, no shortness of breath, no leg edema Respiratory: no cough, no shortness of breath, no dyspnea on exertion Gastrointestinal: no abdominal pain, no nausea, no vomiting, no diarrhea, no melena Genitourinary Female: no dysuria, no hematuria Rectal: no bleeding Integumentary: sores Neurological: no seizures, no syncope, no convulsions, no aphasia, no change in speech, no change in mentation, no confusion Exam - Vital Signs Vital signs: Vital Signs Temp Pulse Resp BP Pulse Ox 98 F 73 19 175/104 99 07/19/20 06:22 07/19/20 06:22 07/19/20 06:22 07/19/20 06:22 07/19/20 06:22 Results - Lab Results 07/20/20 04:53 07/20/20 04:53 Most recent lab results Calcium 8.4 mg/dL (8.4-10.2) 07/20/20 04:53 Assessment and Plan 1. CKD vs Acute kidney injury: Patient with known h/o CKD. Urine studies and Renal US ordered. Monitor renal function. Avoid nephrotoxic agents. Meds dosage based on GFR. 2. FEN: Monitor lytes and volume status. 3. NSTEMI: Chest pain protocol. Serial Troponin. CXR negative. ASA, statin, Metoprolol and Lovenox. Followed by Cardiology. 4. DM type 2, uncontrolled: Monitor. 5. Accelerated HTN: Monitor BP. Adjust meds as needed. 6. H/o CVA. Subjective: Patient was seen and examined at the bedside. Doing ok. Examination: General appearance: well-developed, appears stated age, well nourished, not in distress HEENT: MEHREEN, atraumatic Neck: trachea midline Respiratory: ctab Heart: S1S2, regular, no murmur Abdomen: soft, bowel sounds heard, NT Integumentary: R BKA stump dressing noted Neurologic: AO, able to move extremities Ext: no edema noted
--- NOTE | 2020-07-21 21:32 | Electrocardiograph Report ---
[facility] Test Date: 2020-07-19 Test Time: 06:48:57 Pat Name: GISEL HUITRON Department: Room: A475 1 Gender: F Provider Relations Specialist: DIONISIO : 1965 Requested By: FAUSTO LONGORIA Order Number: [id number] Reading MD: Elias Mayer Measurements Intervals [place] Rate: 65 P: 59 [place]: 142 QRS: 25 QRSD: 91 T: 108 QT: 427 QTc: 467 Interpretive Statements Sinus rhythm Frequent premature atrial complexes Probable LVH with secondary repol abnrm No previous ECG available for comparison Electronically Signed On 07-21-2020 21:32:16 EDT by Elias Mayer
--- NOTE | 2020-07-21 21:43 | Electrocardiograph Report ---
[facility] Test Date: 2020-07-20 Test Time: 11:26:41 Pat Name: GISEL HUITRON Department: Room: A475 1 Gender: F Integrated Logistics Programs Director: DREW : 1965 Requested By: FAUSTO LONGORIA Order Number: [id number] Reading MD: Elias Mayer Measurements Intervals [place] Rate: 82 P: 68 CT: 131 QRS: 18 QRSD: 95 T: 57 QT: 411 QTc: 482 Interpretive Statements Sinus rhythm Atrial premature complex Sinus pause No previous ECG available for comparison Electronically Signed On 07-21-2020 21:42:58 EDT by Elias Mayer
--- NOTE | 2020-07-21 22:51 | Ultrasound Report ---
ULTRASOUND RENAL INDICATION: Acute renal failure.. Acute renal failure. COMPARISON: No relevant prior imaging study available. FINDINGS: RIGHT KIDNEY: Size: 11.0 cm. Echogenicity: Normal. Cortical thickness: 0.9 cm. Hydronephrosis: None. Cyst or mass: None. Stones: None. LEFT KIDNEY: Size: 10.8 cm. Echogenicity: Normal. Cortical thickness: 0.9. Hydronephrosis: None. Cyst or mass: None. Stones: None. Urinary Bladder: No significant abnormality. Free Fluid: None. Additional Findings: None. IMPRESSION 1. No acute sonographic abnormality of the kidneys. Signer Name: Wilfredo Arriaga MD Signed: 07/21/2020 10:46 PM Workstation Name: [id number]
[2020-07-22] MEDS ORDERED: AMINOPHYLLINE 500 MG/20 ML INJ IV ONE ×2 (00:24→09:30)
[2020-07-22 05:55] LABS: Basophils # (Auto) 0.1 K/mm3 (0.0-0.1); Basophils % (Auto) 1.2 % (0.0-1.8); Eosinophils # (Auto) 0.3 K/mm3 (0.0-0.4); Eosinophils % (Auto) 3.8 % (0.0-4.3); Hematocrit 35.6 % (30.3-42.9); Hemoglobin 12.1 gm/dl (10.1-14.3); Lymphocytes # (Auto) 2.4 K/mm3 (1.2-5.4); Lymphocytes % (Auto) 35.9 % (13.4-35.0); Mean Corpuscular HGB Conc 34 % (30-34); Mean Corpuscular Volume 83 fl (79-97); Monocytes # (Auto) 0.5 K/mm3 (0.0-0.8); Monocytes % (Auto) 6.7 % (0.0-7.3); Platelet Count 302 K/mm3 (140-440); Red Blood Count 4.31 M/mm3 (3.65-5.03); Red Cell Distribution Width 14.9 % (13.2-15.2)
[2020-07-22 06:10] LABS: Calcium 8.4 mg/dL (8.4-10.2)
[2020-07-22] MEDS ORDERED: REGADENOSON 0.4 MG/5 ML INJ IV ONE ×2 (06:32→08:47)
--- NOTE | 2020-07-22 08:40 | Progress Note ---
Assessment and Plan Assessment and plan: NSTEMI. Accelerated hypertension Chronic kidney disease. Diabetes mellitus type 2 Hyperlipidemia History of CVA 07/20. Continue therapeutic Lovenox for anticoagulation. Echocardiogram pending. Await cardiology consultation and recommendations for ischemic evaluation. Continue hydralazine as needed for BP control. Continue aspirin and Lipitor. 07/21. Echocardiogram reveals left ventricular size normal with systolic function also normal. EF 55 to 60%. VQ scan negative for PE. Creatinine has remained stable at 1.5. I suspect patient has chronic kidney disease. We do not have a baseline creatinine to compare. However, if cardiology to consider ischemic evaluation with cardiac catheterization, we will obtain nephrology consultation for further assistance with management. 07/22; possible discharge if cleared by cardiology. Patient had stress test earlier this morning and reading is pending. History Interval history: Patient was seen and evaluated this morning Patient denied chest pain Hospitalist Physical - Physical exam Narrative exam: Not in cardiopulmonary distress. The patient appeared well nourished and normally developed. Vital signs as documented. Head exam is unremarkable. No scleral icterus . Neck is without jugular venous distension, thyromegaly, or carotid bruits. Lungs are clear to auscultation. Cardiac exam reveals regular rate and Rhythm. Abdominal exam reveals normal bowel sounds, nontender, no organomegaly. Extremities are nonedematous and both femoral and pedal pulses are normal. 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 No focal weakness. - Constitutional Vitals: Temp Pulse Resp BP Pulse Ox 97.5 F L 82 18 140/68 100 07/22/20 04:07 07/22/20 04:07 07/22/20 04:07 07/22/20 04:07 07/22/20 04:07 General appearance: Present: mild distress HEART Score - HEART Score EKG: Non-specific Age: 45-65 Risk factors: > 3 risk factors or hx of atherosclerotic disease Troponin: Troponin T 0.174 ng/mL (0.00-0.029) H* 07/19/20 20:28 Troponin: < normal limit Results - Labs CBC & Chem 7: 07/22/20 04:47 07/22/20 04:47 Labs: Laboratory Last Values WBC 6.8 K/mm3 (4.5-11.0) 07/22/20 04:47 RBC 4.31 M/mm3 (3.65-5.03) 07/22/20 04:47 Hgb 12.1 gm/dl (10.1-14.3) 07/22/20 04:47 Hct 35.6 % (30.3-42.9) 07/22/20 04:47 MCV 83 fl (79-97) 07/22/20 04:47 MCH 28 pg (28-32) 07/22/20 04:47 MCHC 34 % (30-34) 07/22/20 04:47 RDW 14.9 % (13.2-15.2) 07/22/20 04:47 Plt Count 302 K/mm3 (140-440) 07/22/20 04:47 Lymph % (Auto) 35.9 % (13.4-35.0) H 07/22/20 04:47 [place] % (Auto) 6.7 % (0.0-7.3) 07/22/20 04:47 Eos % (Auto) 3.8 % (0.0-4.3) 07/22/20 04:47 Baso % (Auto) 1.2 % (0.0-1.8) 07/22/20 04:47 Lymph # (Auto) 2.4 K/mm3 (1.2-5.4) 07/22/20 04:47 [place] # (Auto) 0.5 K/mm3 (0.0-0.8) 07/22/20 04:47 Eos # (Auto) 0.3 K/mm3 (0.0-0.4) 07/22/20 04:47 Baso # (Auto) 0.1 K/mm3 (0.0-0.1) 07/22/20 04:47 Seg Neutrophils % 52.4 % (40.0-70.0) 07/22/20 04:47 Seg Neutrophils # 3.6 K/mm3 (1.8-7.7) 07/22/20 04:47 PT 13.8 Sec. (12.2-14.9) 07/19/20 07:09 INR 1.07 (0.87-1.13) 07/19/20 07:09 APTT 30.3 Sec. (24.2-36.6) 07/19/20 07:09 D-Dimer 981.95 ng/mlDDU (0-234) H 07/19/20 07:09 Sodium 137 mmol/L (137-145) 07/22/20 04:47 Potassium 4.0 mmol/L (3.6-5.0) D 07/22/20 04:47 Chloride 101.1 mmol/L (98-107) 07/22/20 04:47 Carbon Dioxide 24 mmol/L (22-30) 07/22/20 04:47 Anion Gap 16 mmol/L 07/22/20 04:47 BUN 21 mg/dL (7-17) H 07/22/20 04:47 Creatinine 1.6 mg/dL (0.6-1.2) H 07/22/20 04:47 Estimated GFR 40 ml/min 07/22/20 04:47 BUN/Creatinine Ratio 13 % 07/22/20 04:47 Glucose 227 mg/dL (65-100) H 07/22/20 04:47 POC Glucose 224 mg/dL (70-105) H 07/22/20 07:37 Calcium 8.4 mg/dL (8.4-10.2) 07/22/20 04:47 Total Bilirubin < 0.20 mg/dL (0.1-1.2) 07/20/20 04:53 AST 13 units/L (5-40) 07/20/20 04:53 ALT 7 units/L (7-56) 07/20/20 04:53 Alkaline Phosphatase 94 units/L (35-129) 07/20/20 04:53 Troponin T 0.174 ng/mL (0.00-0.029) H* 07/19/20 20:28 NT-Pro-B Natriuret Pep 1460 pg/mL (0-900) H 07/19/20 16:11 Total Protein 6.2 g/dL (6.3-8.2) L 07/20/20 04:53 Albumin 2.8 g/dL (3.9-5) L 07/20/20 04:53 Albumin/Globulin Ratio 0.8 % 07/20/20 04:53 Triglycerides 216 mg/dL (2-149) H 07/19/20 09:23 Cholesterol 218 mg/dL (50-199) H 07/19/20 09:23 LDL Cholesterol Direct 156 mg/dL (50-130) H 07/19/20 09:23 HDL Cholesterol 33 mg/dL (40-59) L 07/19/20 09:23 Cholesterol/HDL Ratio 6.60 % 07/19/20 09:23 [place]/IV: Voiding Method Bedside Commode Active Medications - Current Medications Current Medications: Generic Name Dose Route Start Last Admin Trade Name Freq PRN Reason Stop Dose Admin Acetaminophen 650 mg 07/19/20 13:12 Acetaminophen 325 Mg Tab PO Q4H PRN Pain MILD(1-3)/Fever >100.5/BARBOSA Albuterol 2.5 mg 07/19/20 13:12 Albuterol 2.5 Mg/3 Ml Nebu IH Q4HRT PRN Shortness Of Breath Aspirin 325 mg 07/20/20 12:00 07/21/20 09:42 Aspirin 325 Mg Tab PO 325 mg QDAY SERVANDO Administration Atorvastatin Calcium 40 mg 07/19/20 22:00 07/21/20 21:32 Atorvastatin 40 Mg Tab PO 40 mg QHS SERVANDO Administration Diphenhydramine HCl 25 mg 07/21/20 04:57 07/21/20 19:39 Diphenhydramine 25 Mg Cap PO 25 mg BID PRN Administration Itching Enoxaparin Sodium 70 mg 07/20/20 10:00 07/21/20 21:31 Enoxaparin 80 Mg/0.8 Ml Inj SUB-Q 70 mg Q12HR SERVANDO Administration Protocol Hydralazine HCl 10 mg 07/19/20 16:25 07/21/20 04:47 Hydralazine 20 Mg/1 Ml Inj IV 10 mg Q6HR PRN Administration Hypertension Insulin Human Lispro 0 unit 07/19/20 18:30 07/21/20 21:31 Insulin Lispro 100 Unit/Ml SUB-Q 6 unit ACHS SERVANDO Administration Protocol Metoprolol Tartrate 12.5 mg 07/19/20 22:00 07/21/20 21:32 Metoprolol Tartrate 25 Mg Tab PO 12.5 mg BID SERVANDO Administration Nitroglycerin 0.4 mg 07/19/20 13:12 07/19/20 18:48 Nitroglycerin 0.4 Mg Tab Subl SL 0.4 mg Q5M PRN Administration Chest Pain Ondansetron HCl 4 mg 07/19/20 13:12 Ondansetron 4 Mg/2 Ml Inj IV Q8H PRN Nausea And Vomiting Sodium Chloride 10 ml 07/19/20 22:00 07/21/20 09:43 Sodium Chloride 0.9% 10 Ml Flush Syringe IV 10 ml BID SERVANDO Administration Sodium Chloride 10 ml 07/19/20 14:12 Sodium Chloride 0.9% 10 Ml Flush Syringe IV PRN PRN LINE FLUSH Tramadol HCl 50 mg 07/19/20 13:12 07/21/20 16:30 Tramadol 50 Mg Tab PO 50 mg Q6H PRN Administration Pain, Moderate (4-6)
--- NOTE | 2020-07-22 08:57 | Progress Note ---
Assessment and Plan 1. CKD vs Acute kidney injury: Patient with known h/o CKD. Urine studies and Renal US ordered. Monitor renal function. Avoid nephrotoxic agents. Meds dosage based on GFR. 2. FEN: Monitor lytes and volume status. 3. Nephrotic syndrome: Likely 2/2 diabetic neohropathy. Other causes need to be ruled out. Need close outpatient follow up. 4. NSTEMI: Chest pain protocol. Serial Troponin. CXR negative. ASA, statin, Metoprolol and Lovenox. Followed by Cardiology. Stress test negative. 5. DM type 2, uncontrolled: Monitor. 6. Accelerated HTN: Monitor BP. Adjust meds as needed. 7. H/o CVA. F/u with me in 1-2 weeks. Subjective: Patient was seen and examined at the bedside. Examination: General appearance: well-developed, appears stated age, well nourished, not in distress HEENT: MEHREEN, atraumatic Neck: trachea midline Respiratory: ctab Heart: S1S2, regular, no murmur Abdomen: soft, bowel sounds heard, NT Integumentary: R BKA stump dressing noted Neurologic: AO, able to move extremities Ext: no edema noted Subjective Date of service: 07/22/20 Objective - Vital Signs Vital signs: Vital Signs - 12hr 07/21/20 07/22/20 07/22/20 23:51 00:00 04:07 Temperature 99.2 F 97.5 F L Pulse Rate 89 84 82 Respiratory 18 18 Rate Blood Pressure 146/73 140/68 O2 Sat by Pulse 100 100 Oximetry 07/22/20 07:39 Temperature 98.2 F Pulse Rate 85 Respiratory 18 Rate Blood Pressure 207/93 O2 Sat by Pulse 100 Oximetry - Lab 07/22/20 04:47 07/22/20 04:47 Most recent lab results Calcium 8.4 mg/dL (8.4-10.2) 07/22/20 04:47 Medications & Allergies - Medications Allergies/Adverse Reactions: Allergies acetaminophen [From Percocet] Allergy (Verified 06/30/20 14:45) Vomiting metformin Allergy (Verified 06/30/20 14:45) Unknown oxycodone [From Percocet] Allergy (Verified 06/30/20 14:45) Vomiting Penicillins Allergy (Verified 06/30/20 14:45) Unknown Home Medications: Home Medications Medication Instructions Recorded Confirmed Last Taken Type Acetaminophen [Tylenol] 650 mg PO Q8HR PRN #20 capsule 06/30/20 07/19/20 07/17/20 10:00 Rx methOCARBAMOL [Robaxin TAB] 500 mg PO BID PRN #14 tab 06/30/20 07/19/20 07/17/20 10:00 Rx Aspirin 325 mg PO QDAY #30 tablet 07/22/20 Unknown Rx AtorvaSTATin [Lipitor] 40 mg PO QHS #30 tablet 07/22/20 Unknown Rx Metoprolol [Lopressor TAB] 12.5 mg PO BID #60 tablet 07/22/20 Unknown Rx traMADoL [Ultram 50 MG tab] 50 mg PO Q6H PRN #20 tablet 07/22/20 Unknown Rx Active Medications: Generic Name Dose Route Start Last Admin Trade Name Freq PRN Reason Stop Dose Admin Acetaminophen 650 mg 07/19/20 13:12 Acetaminophen 325 Mg Tab PO Q4H PRN Pain MILD(1-3)/Fever >100.5/BARBOSA Albuterol 2.5 mg 07/19/20 13:12 Albuterol 2.5 Mg/3 Ml Nebu IH Q4HRT PRN Shortness Of Breath Aspirin 325 mg 07/20/20 12:00 07/21/20 09:42 Aspirin 325 Mg Tab PO 325 mg QDAY SERVANDO Administration Atorvastatin Calcium 40 mg 07/19/20 22:00 07/21/20 21:32 Atorvastatin 40 Mg Tab PO 40 mg QHS SERVANDO Administration Diphenhydramine HCl 25 mg 07/21/20 04:57 07/21/20 19:39 Diphenhydramine 25 Mg Cap PO 25 mg BID PRN Administration Itching Enoxaparin Sodium 70 mg 07/20/20 10:00 07/21/20 21:31 Enoxaparin 80 Mg/0.8 Ml Inj SUB-Q 70 mg Q12HR SERVANDO Administration Protocol Hydralazine HCl 10 mg 07/19/20 16:25 07/21/20 04:47 Hydralazine 20 Mg/1 Ml Inj IV 10 mg Q6HR PRN Administration Hypertension Insulin Human Lispro 0 unit 07/19/20 18:30 07/21/20 21:31 Insulin Lispro 100 Unit/Ml SUB-Q 6 unit ACHS SERVANDO Administration Protocol Metoprolol Tartrate 12.5 mg 07/19/20 22:00 07/21/20 21:32 Metoprolol Tartrate 25 Mg Tab PO 12.5 mg BID SERVANDO Administration Nitroglycerin 0.4 mg 07/19/20 13:12 07/19/20 18:48 Nitroglycerin 0.4 Mg Tab Subl SL 0.4 mg Q5M PRN Administration Chest Pain Ondansetron HCl 4 mg 07/19/20 13:12 Ondansetron 4 Mg/2 Ml Inj IV Q8H PRN Nausea And Vomiting Sodium Chloride 10 ml 07/19/20 22:00 07/21/20 09:43 Sodium Chloride 0.9% 10 Ml Flush Syringe IV 10 ml BID SERVANDO Administration Sodium Chloride 10 ml 07/19/20 14:12 Sodium Chloride 0.9% 10 Ml Flush Syringe IV PRN PRN LINE FLUSH Tramadol HCl 50 mg 07/19/20 13:12 07/21/20 16:30 Tramadol 50 Mg Tab PO 50 mg Q6H PRN Administration Pain, Moderate (4-6)
[2020-07-22] MEDS ORDERED: AMINOPHYLLINE 50 MG in SODIUM CHLORIDE 0.9% 100 ML IV ONE ×2 (09:16→09:21)
[2020-07-22] MEDS: INSULIN LISPRO 100 UNIT/ML SUB-Q SCH ×3 (09:21→16:53)
[2020-07-22] MEDS: ENOXAPARIN 80 MG/0.8 ML INJ SUB-Q SCH (09:53)
[2020-07-22] MEDS: ASPIRIN 325 MG TAB PO SCH (09:54)
[2020-07-22] MEDS: METOPROLOL TARTRATE 25 MG TAB PO SCH (09:54)
--- NOTE | 2020-07-22 11:57 | Progress Note ---
Assessment and Plan Telemetry reviewed: Sinus rhythm 80 with frequent PACs. No events #NSTEMI suspect type II * Troponins elevated x2. Chest pain is currently resolved with no current cardiac symptoms. Continue to trend CE's * Lexiscan MPI stress test reviewed (07/22/2020): Negative for reversible ischemia * Echocardiogram reviewed (07/19/2020): LVEF is 55 to 60%. LV SF is normal. Asymmetric septal thickening is noted. Transmitral Doppler flow pattern suggests pseudonormalization. RV SF is normal. Valves are grossly normal, moderate aortic valve sclerosis. RVSP is 25 mmHg. #Hypertension * Continue current antihypertensive regimen: Metoprolol 12.5 mg twice daily. #Acute on chronic kidney disease with low GFR * No SHAYY ARB in setting of acute kidney injury. Avoid nephrotoxic agents. Nephrology is consulted. #DVT prophylaxis * Lovenox 70 SQ twice daily Patient is currently in stable cardiac status. Will follow. This patient was seen in conjunction with Dr. Mamadou Osorio who agrees with this assessment and plan of care - Patient Problems (1) Accelerated hypertension Current Visit: Yes Status: Acute (2) Angina at rest Current Visit: Yes Status: Acute (3) Diabetes Current Visit: Yes Status: Acute (4) Non-STEMI (non-ST elevated myocardial infarction) Current Visit: Yes Status: Acute Subjective Date of service: 07/22/20 Principal diagnosis: Chest Pain Interval history: Patient resting comfortably in bed. No shortness of breath or chest pain overnight. Telemetry reviewed: Sinus rhythm 80 with frequent PACs. No events Objective Last Vital Signs Temp 98.2 F 07/22/20 07:39 Pulse 82 07/22/20 10:00 Resp 19 07/22/20 10:00 BP 207/93 07/22/20 07:39 Pulse Ox 100 07/22/20 07:39 - Physical Examination General: Appears Well HEENT: Positive: PERRL, Normocephaly, Mucus Membranes Moist Neck: Positive: neck supple, trachea midline Cardiac: Positive: Reg Rate and Rhythm, S1/S2 Lungs: Positive: Normal Exam, Normal Breath Sounds Neuro: Positive: Grossly Intact Abdomen: Positive: Unremarkable, Soft Skin: Negative: Rash, Wound Musculoskeletal: No Pain Extremities: Present: upper extr. pulses, lower extr. pulses. Absent: edema - Labs and Meds CBC 07/22/20 Range/Units 04:47 WBC 6.8 (4.5-11.0) K/mm3 RBC 4.31 (3.65-5.03) M/mm3 Hgb 12.1 (10.1-14.3) gm/dl Hct 35.6 (30.3-42.9) % Plt Count 302 (140-440) K/mm3 Lymph # (Auto) 2.4 (1.2-5.4) K/mm3 [place] # (Auto) 0.5 (0.0-0.8) K/mm3 Eos # (Auto) 0.3 (0.0-0.4) K/mm3 Baso # (Auto) 0.1 (0.0-0.1) K/mm3 Comprehensive Metabolic Panel 07/22/20 Range/Units 04:47 Sodium 137 (137-145) mmol/L Potassium 4.0 D (3.6-5.0) mmol/L Chloride 101.1 (98-107) mmol/L Carbon Dioxide 24 (22-30) mmol/L BUN 21 H (7-17) mg/dL Creatinine 1.6 H (0.6-1.2) mg/dL Glucose 227 H (65-100) mg/dL Calcium 8.4 (8.4-10.2) mg/dL - Imaging and Cardiology EKG: report reviewed, image reviewed Nuclear stress test: report reviewed (Lexiscan MPI stress test (07/22/2020) is negative for reversible ischemia) Echo: report reviewed - Telemetry EKG Rhythm: Sinus Rhythm - EKG Sinus rhythms and dysrhythmias: sinus rhythm
--- NOTE | 2020-07-22 12:41 | Discharge Summary ---
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 Patient reports "my chest hurts. Patient states that she has experienced a sudden onset of pain in her chest that began 2 hours prior to transportation to the hospital. Patient states that pain is 57/10, intermittent, worsened with exertion, relieved with rest, sharp, crushing in nature, nonradiating, localized to the right side of the chest. EMS was notified and upon arrival the patient was found to be in distress and subsequently transported to [facility] for further care and evaluation of the aforementioned symptoms. The patient was seen and evaluated in the emergency department. All lab and imaging studies reviewed. Patient found to have non-ST elevation VA complicated by angina, as well as accelerated hypertension. The patient admitted to telemetry and initiated on ACS protocol. Patient initiated on therapeutic anticoagulation. Cardiology team consulted in ED. Patient denies fever, chills, palpitations, productive cough, skin rash, recent ill contacts, unilateral leg swelling, calf pain, prolonged travel/immobility, individual/family history of DVT/PE/bleeding/blood clotting disorders, or known exposure to COVID-19. No prior admission for review. No medication listed at time of admission for reconciliation. Hospital course NSTEMI. Accelerated hypertension Chronic kidney disease. Diabetes mellitus type 2 Hyperlipidemia History of CVA 07/20. Continue therapeutic Lovenox for anticoagulation. Echocardiogram pending. Await cardiology consultation and recommendations for ischemic evaluation. Continue hydralazine as needed for BP control. Continue aspirin and Lipitor. 07/21. Echocardiogram reveals left ventricular size normal with systolic function also normal. EF 55 to 60%. VQ scan negative for PE. Creatinine has remained stable at 1.5. I suspect patient has chronic kidney disease. We do not have a baseline creatinine to compare. However, if cardiology to consider ischemic evaluation with cardiac catheterization, we will obtain nephrology consultation for further assistance with management. 07/22; possible discharge if cleared by cardiology. Patient had stress test earlier this morning and reading is pending. I have seen and evaluated the patient, patient does not have any chest pain. Stress test was negative. Patient has history of hypertension, diabetes mellitus, hyperlipidemia and history of CVA. Patient states she was on Lantus, Novolin , blood pressure medications that she does not remember the name. Her medications were not properly reconciled. But to have a discussion with her and advised her to continue to take her insulin and blood pressure medications. I have added aspirin, atorvastatin and metoprolol. Patient can be discharged home will have follow-up with Dr. Osorio in the office. Patient was hemodynamically stable at the time of discharge. Management plan was discussed in detail. Patient's questions and concerns were addressed at the bedside. Disposition: DC-01 TO HOME OR SELFCARE Final Discharge Diagnosis (Prints w/discharge instructions): NSTEMI. Uncontrolled hypertension. Diabetes mellitus with hyperglycemia Time spent for discharge: 35 minutes - Discharge Diagnoses (1) Accelerated hypertension Status: Acute (2) Angina at rest Status: Acute (3) Diabetes Status: Acute (4) Non-STEMI (non-ST elevated myocardial infarction) Status: Acute Core Measure Documentation - Palliative Care Palliative Care/ Comfort Measures: Not Applicable - Core Measures Any of the following diagnoses?: none Exam - Physical Exam Narrative exam: Not in cardiopulmonary distress. The patient appeared well nourished and normally developed. Vital signs as documented. Head exam is unremarkable. No scleral icterus . Neck is without jugular venous distension, thyromegaly, or carotid bruits. Lungs are clear to auscultation. Cardiac exam reveals regular rate and Rhythm. Abdominal exam reveals normal bowel sounds, nontender, no organomegaly. Extremities are nonedematous and both femoral and pedal pulses are normal. 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 No focal weakness. - Constitutional Vitals: Temp Pulse Resp BP Pulse Ox 98.2 F 82 19 207/93 100 07/22/20 07:39 07/22/20 10:00 07/22/20 10:00 07/22/20 07:39 07/22/20 07:39 Plan Activity: advance as tolerated Weight Bearing Status: Weight Bear as Tolerated Diet: low cholesterol, low salt Follow up with: PRIMARY CARE, [Primary Care Provider] - 3-5 Days GABO OSORIO MD [Staff Physician] - 14 Days Prescriptions: AtorvaSTATin [Lipitor] 40 mg PO QHS #30 tablet Aspirin 325 mg PO QDAY #30 tablet Metoprolol [Lopressor TAB] 12.5 mg PO BID #60 tablet traMADoL [Ultram 50 MG tab] 50 mg PO Q6H PRN #20 tablet PRN Reason: Pain, Moderate (4-6)
[2020-07-22] MEDS: hydrALAZINE 20 MG/1 ML INJ IV PRN (12:58)
[2020-07-22 14:09] LABS: Creatinine,Urine 71.2 mg/dL (0.1-20.0)
[2020-07-22 14:10] LABS: Bacteria,Urine 1+ /HPF (Negative); Bilirubin,Urine NEG (Negative); Blood,Urine NEG (Negative); Color,Urine Yellow (Yellow); Urobilinogen,Urine < 2.0 mg/dL (<2.0)
[2020-07-22 14:15] LABS: Protein,Urine >500 mg/dL (Negative)
[2020-07-22 14:34] LABS: Protein/Creatinine Ratio,Urine 7.53
[2020-07-22 16:20] VITALS: BP 163/78
--- NOTE | 2020-07-22 21:33 | Treadmill Report ---
DATE OF SERVICE: 07/22/2020 NUCLEAR PERFUSION SCAN REFERRING PHYSICIAN: Hospitalist. DESCRIPTION OF PROCEDURE: The patient was assessed in postoperative state given 10 mCi of technetium at rest. The patient had rest imaging. At peak stress, the patient was given 26 mCi technetium 99m. Shortly thereafter, the patient underwent stress imaging. Raw imaging reveals mild GI artifact, no motion artifact. SPECT image examined carefully in horizontal long axis, vertical long axis, short axis views. There is no evidence of a significant fixed or reversible perfusion defect suggestive of prior infarction or ischemia. Technically somewhat difficult, but grossly probably normal. Gated wall motion reveals borderline LV function, calculated at 45%. No TID. CONCLUSION: 1. Technically difficult study due to body habitus and GI artifact, but grossly probably normal without evidence of significant degree of ischemia or prior infarction. 2. Low normal systolic performance calculated at 45%. No TID or stress induced segmental wall motion abnormalities. TID: [id number] RECEIPT: [id number] [facility]/AMI
--- NOTE | 2020-07-23 10:11 | Electrocardiograph Report ---
[facility] Test Date: 2020-07-21 Test Time: 10:36:05 Pat Name: GISEL HUITRON Department: Room: A475 1 Gender: F Bill Sorter: SHEMAR : 1965 Requested By: PHOEBE VICTORIA Order Number: [id number] Reading MD: Fady Osorio Measurements Intervals [place] Rate: 91 P: 72 CO: 139 QRS: 20 QRSD: 95 T: 40 QT: 427 QTc: 516 Interpretive Statements Sinus rhythm Atrial premature complexes in couplets Prolonged QT interval Compared to ECG 07/20/2020 11:26:41 Prolonged QT interval now present Sinus pause or arrest no longer present Electronically Signed On 07-23-2020 10:11:05 EDT by Fady Osorio
== END 2020-07-22 19:03 | disposition home or self-care (01) | DRG 281 ==
LOC: ED 06:08 → 4A 17:00
PROVIDERS: ADMIT Internal Medicine; ATTEND Internal Medicine
DX: I21.4 Non-ST elevation (NSTEMI) myocardial infarction (principal); N17.9 Acute kidney failure, unspecified; N18.9 Chronic kidney disease, unspecified; E11.22 Type 2 diabetes mellitus with diabetic chronic kidney disease; I12.9 Hypertensive chronic kidney disease with stage 1 through stage 4 chronic kidney disease, or unspecified chronic kidney disease; I25.119 Atherosclerotic heart disease of native coronary artery with unspecified angina pectoris; I49.1 Atrial premature depolarization; E78.5 Hyperlipidemia, unspecified; E11.51 Type 2 diabetes mellitus with diabetic peripheral angiopathy without gangrene; Z88.0 Allergy status to penicillin; Z86.73 Personal history of transient ischemic attack (TIA), and cerebral infarction without residual deficits; Z88.8 Allergy status to other drugs, medicaments and biological substances; Z95.1 Presence of aortocoronary bypass graft; Z95.818 Presence of other cardiac implants and grafts
CPT/HCPCS: 36415; 71045; 76770; 78452; 78580; 80048; 80053; 80061; 81001; 82550; 82570; 82962; 83036; 83735; 83880; 84156; 84300; 84484; 85014; 85018; 85025; 85027; 85049; 85379; 85520; 85610; 85730; 93005; 93017; 93306; 93459; 96360; 96374; 99285; G0378; A9270-GY; A9502; A9540; C1894; J0280; J0360; J1170; J1200; J1644; J1650; J1815; J2250; J2270; J2405; J2785; J3010; J7030; J7040; J7120; Q0162; Q9967

== ENCOUNTER 2020-07-24 05:19 | Inpatient (IN) | payer MEDICAID ==
[2020-07-24] MEDS ORDERED: ASPIRIN 325 MG TAB PO STA (06:25)
[2020-07-24] MEDS ORDERED: METOPROLOL TARTRATE 25 MG TAB PO STA (06:25)
[2020-07-24] MEDS ORDERED: traMADol 50 MG TAB PO STA (06:25)
[2020-07-24] MEDS ORDERED: ONDANSETRON 4 MG ODT TAB PO STA (06:32)
[2020-07-24] MEDS ORDERED: ACETAMINOPHEN 325 MG TAB PO ONE (07:25)
[2020-07-24 08:15] LABS: Hematocrit 34.3 % (30.3-42.9); Hemoglobin 11.4 gm/dl (10.1-14.3)
[2020-07-24 08:25] LABS: INR 0.89 (0.87-1.13)
[2020-07-24 08:36] LABS: Calcium 8.5 mg/dL (8.4-10.2)
[2020-07-24] MEDS ORDERED: NITROGLYCERIN 0.4 MG TAB SUBL SL PRN (08:42)
[2020-07-24] MEDS ORDERED: LACTATED RINGERS 500 ML IV ONE (10:10)
[2020-07-24] MEDS ORDERED: hydrALAZINE 20 MG/1 ML INJ IV PRN (11:46)
[2020-07-24] MEDS ORDERED: INSULIN GLARGINE 100 UNITS/ML SUB-Q ONE (12:00)
[2020-07-24] MEDS ORDERED: DEXTROSE 50% IN WATER (25GM) 50 ML SYRINGE IV PRN (12:00)
[2020-07-24] MEDS ORDERED: SODIUM CHLORIDE 0.9% 500 ML 500 ML IV SCH (14:00)
[2020-07-24] MEDS: cloNIDine 0.2 MG TAB PO SCH ×2 (14:21→22:50)
[2020-07-24] MEDS: amLODIPine 10 MG TAB PO SCH (14:21)
[2020-07-24] MEDS: HEPARIN 5,000 UNIT/1 ML VIAL SUB-Q SCH ×2 (14:21→22:50)
[2020-07-24] MEDS: hydrALAZINE 100 MG TAB PO SCH ×2 (14:21→23:40)
[2020-07-24] MEDS ORDERED: INSULIN LISPRO 100 UNIT/ML SUB-Q SCH (16:30)
[2020-07-24] MEDS ORDERED: LACTATED RINGERS 1,000 ML ONE (17:07)
[2020-07-24] MEDS: MORPHINE 2 MG/1 ML INJ IV PRN (20:53)
[2020-07-24] MEDS: INSULIN GLARGINE 100 UNITS/ML SUB-Q SCH (22:57)
[2020-07-24] MEDS: INSULIN LISPRO 100 UNIT/ML SUB-Q SCH (22:57)
[2020-07-24] MEDS: RANOLAZINE ER 500 MG TAB 12HR PO SCH (22:58)
[2020-07-24] MEDS: carvediloL 25 MG TAB PO SCH (22:58)
[2020-07-25 06:11] LABS: Hemoglobin 10.6 gm/dl (10.1-14.3); Mean Corpuscular HGB Conc 34 % (30-34); Mean Corpuscular Volume 83 fl (79-97); Platelet Count 288 K/mm3 (140-440); Red Blood Count 3.76 M/mm3 (3.65-5.03); Red Cell Distribution Width 14.8 % (13.2-15.2)
[2020-07-25 06:19] LABS: INR 0.97 (0.87-1.13)
[2020-07-25] MEDS: HEPARIN 5,000 UNIT/1 ML VIAL SUB-Q SCH ×2 (06:19→17:34)
[2020-07-25 06:28] LABS: Calcium 8.2 mg/dL (8.4-10.2)
[2020-07-25] MEDS: INSULIN LISPRO 100 UNIT/ML SUB-Q SCH ×4 (09:34→21:40)
[2020-07-25] MEDS: ASPIRIN 81 MG TAB CHEW PO SCH (09:37)
[2020-07-25] MEDS: carvediloL 25 MG TAB PO SCH ×2 (09:37→21:23)
[2020-07-25] MEDS: amLODIPine 10 MG TAB PO SCH (09:38)
[2020-07-25] MEDS: hydrALAZINE 100 MG TAB PO SCH ×3 (09:39→21:22)
[2020-07-25] MEDS: RANOLAZINE ER 500 MG TAB 12HR PO SCH ×2 (09:44→21:22)
[2020-07-25] MEDS ORDERED: SODIUM CHLORIDE 0.9% 1000 ML 1,000 ML ONE (12:48)
[2020-07-25] MEDS ORDERED: ACETAMINOPHEN 325 MG TAB PO PRN (13:02)
[2020-07-25] MEDS ORDERED: HEPARIN 10,000 UNITS/10 ML VIAL IV PRN (15:32)
[2020-07-25 16:14] LABS: Hematocrit 30.3 % (30.3-42.9); Hemoglobin 10.2 gm/dl (10.1-14.3)
[2020-07-25 16:23] LABS: INR 0.93 (0.87-1.13)
[2020-07-25 16:24] LABS: Partial Thromboplastin Time 31.6 Sec. (24.2-36.6)
[2020-07-25] MEDS: HEPARIN/ 0.45% NACL DRIP 25,000 UNIT/500 ML BAG IV SCH (16:26)
[2020-07-25] MEDS ORDERED: HEPARIN 10,000 UNITS/10 ML VIAL IV ONE (16:32)
[2020-07-25] MEDS: INSULIN GLARGINE 100 UNITS/ML SUB-Q SCH (21:40)
[2020-07-25] MEDS ORDERED: MELATONIN 5 MG TAB PO PRN (21:52)
[2020-07-26] MEDS: ONDANSETRON 4 MG/2 ML INJ IV PRN (05:18)
[2020-07-26 05:55] LABS: Calcium 7.9 mg/dL (8.4-10.2)
[2020-07-26] MEDS: INSULIN LISPRO 100 UNIT/ML SUB-Q SCH ×4 (07:50→21:17)
[2020-07-26] MEDS: hydrALAZINE 25 MG TAB PO SCH ×3 (08:20→20:07)
[2020-07-26] MEDS: carvediloL 25 MG TAB PO SCH ×2 (09:00→21:18)
[2020-07-26] MEDS: ASPIRIN 81 MG TAB CHEW PO SCH (09:00)
[2020-07-26] MEDS: RANOLAZINE ER 500 MG TAB 12HR PO SCH ×2 (09:00→21:18)
[2020-07-26] MEDS: amLODIPine 10 MG TAB PO SCH (09:00)
[2020-07-26 12:10] LABS: Protein/Creatinine Ratio,Urine 2.1
[2020-07-26] MEDS ORDERED: HEPARIN 10,000 UNITS/10 ML VIAL IV PRN (14:18)
[2020-07-26] MEDS ORDERED: hydrALAZINE 25 MG TAB PO SCH (15:28)
[2020-07-26 15:48] LABS: Chol/HDL Ratio 3.22 %
[2020-07-26] MEDS: MORPHINE 2 MG/1 ML INJ IV PRN (16:25)
[2020-07-26] MEDS: HEPARIN/ 0.45% NACL DRIP 25,000 UNIT/500 ML BAG IV SCH (19:02)
[2020-07-26] MEDS: HYDROmorphone 1 MG/1 ML INJ IV PRN (20:07)
[2020-07-26] MEDS: INSULIN GLARGINE 100 UNITS/ML SUB-Q SCH (21:16)
[2020-07-27 06:17] LABS: Hematocrit 27.9 % (30.3-42.9); Hemoglobin 9.3 gm/dl (10.1-14.3)
[2020-07-27 06:39] LABS: Calcium 8.5 mg/dL (8.4-10.2)
[2020-07-27 08:19] LABS: Hemoglobin 9.4 gm/dl (10.1-14.3)
[2020-07-27] MEDS: HYDROmorphone 1 MG/1 ML INJ IV PRN ×2 (08:43→19:45)
[2020-07-27] MEDS: hydrALAZINE 25 MG TAB PO SCH ×3 (08:44→23:13)
[2020-07-27] MEDS: INSULIN LISPRO 100 UNIT/ML SUB-Q SCH ×4 (09:02→23:13)
[2020-07-27] MEDS: RANOLAZINE ER 500 MG TAB 12HR PO SCH ×2 (10:39→23:11)
[2020-07-27] MEDS: ASPIRIN 81 MG TAB CHEW PO SCH (10:40)
[2020-07-27] MEDS: carvediloL 25 MG TAB PO SCH ×2 (10:40→23:11)
[2020-07-27] MEDS: amLODIPine 10 MG TAB PO SCH (10:42)
[2020-07-27] MEDS: INSULIN GLARGINE 100 UNITS/ML SUB-Q SCH (23:12)
[2020-07-28] MEDS: ONDANSETRON 4 MG/2 ML INJ IV PRN ×3 (04:01→20:35)
[2020-07-28 06:21] LABS: Calcium 8.6 mg/dL (8.4-10.2)
[2020-07-28] MEDS: hydrALAZINE 25 MG TAB PO SCH ×3 (07:59→20:36)
[2020-07-28] MEDS: INSULIN LISPRO 100 UNIT/ML SUB-Q SCH ×4 (08:00→22:07)
[2020-07-28] MEDS: carvediloL 25 MG TAB PO SCH ×2 (11:50→22:08)
[2020-07-28] MEDS: amLODIPine 10 MG TAB PO SCH (11:51)
[2020-07-28] MEDS: RANOLAZINE ER 500 MG TAB 12HR PO SCH ×2 (11:51→22:08)
[2020-07-28] MEDS: ASPIRIN 81 MG TAB CHEW PO SCH (11:51)
[2020-07-28] MEDS ORDERED: SODIUM CHLORIDE 0.9% 500 ML 500 ML IV SCH (12:00)
[2020-07-28] MEDS: HYDROmorphone 1 MG/1 ML INJ IV PRN (20:35)
[2020-07-28] MEDS ORDERED: HEPARIN 5,000 UNIT/1 ML VIAL SUB-Q SCH (22:00)
[2020-07-28] MEDS: INSULIN GLARGINE 100 UNITS/ML SUB-Q SCH (22:08)
[2020-07-28] MEDS: HEPARIN 5,000 UNIT/1 ML VIAL SUB-Q SCH (22:08)
[2020-07-29] MEDS ORDERED: SODIUM CHLORIDE 0.9% 500 ML 500 ML IV SCH (04:00)
[2020-07-29 04:06] VITALS: BP 126/71
[2020-07-29] MEDS: ONDANSETRON 4 MG/2 ML INJ IV PRN ×2 (04:43→12:20)
[2020-07-29] MEDS: HYDROmorphone 1 MG/1 ML INJ IV PRN ×3 (04:43→16:37)
[2020-07-29 05:25] LABS: Basophils # (Auto) 0.1 K/mm3 (0.0-0.1); Basophils % (Auto) 0.9 % (0.0-1.8); Eosinophils # (Auto) 0.1 K/mm3 (0.0-0.4); Eosinophils % (Auto) 1.6 % (0.0-4.3); Hematocrit 26.1 % (30.3-42.9); Hemoglobin 9.3 gm/dl (10.1-14.3); Lymphocytes % (Auto) 27.7 % (13.4-35.0); Mean Corpuscular HGB Conc 35 % (30-34); Mean Corpuscular Volume 82 fl (79-97); Monocytes # (Auto) 0.8 K/mm3 (0.0-0.8); Monocytes % (Auto) 10.7 % (0.0-7.3); Platelet Count 276 K/mm3 (140-440); Red Blood Count 3.18 M/mm3 (3.65-5.03)
[2020-07-29 05:39] LABS: Calcium 8.5 mg/dL (8.4-10.2)
[2020-07-29 05:40] LABS: INR 1.06 (0.87-1.13)
[2020-07-29] MEDS ORDERED: ASPIRIN 325 MG TAB PO ONE (06:00)
[2020-07-29] MEDS ORDERED: HEPARIN 10,000 UNITS/10 ML VIAL ONE (08:09)
[2020-07-29] MEDS ORDERED: HEPARIN/NS 5000 UNIT/500ML 1,000 ML IR ONE (08:09)
[2020-07-29] MEDS ORDERED: NITROGLYCERIN SYRINGE 0 ML ONE (08:10)
[2020-07-29] MEDS: LIDOCAINE (2%) 20 MG/1 ML VIAL 20 ML MDV INFILTRATI ONE ×2 (08:57→09:08)
[2020-07-29] MEDS: MIDAZOLAM 2 MG/2 ML INJ ONE ×2 (08:57→09:07)
[2020-07-29] MEDS: fentaNYL 100 MCG/2 ML INJ ONE ×2 (08:57→09:07)
[2020-07-29] MEDS: INSULIN LISPRO 100 UNIT/ML SUB-Q SCH ×3 (09:04→16:49)
[2020-07-29] MEDS: hydrALAZINE 25 MG TAB PO SCH (15:17)
[2020-07-29] MEDS: HEPARIN 5,000 UNIT/1 ML VIAL SUB-Q SCH (15:18)
[2020-07-29] MEDS: RANOLAZINE ER 500 MG TAB 12HR PO SCH (15:18)
[2020-07-29] MEDS: amLODIPine 10 MG TAB PO SCH (15:18)
[2020-07-29] MEDS: carvediloL 25 MG TAB PO SCH (15:18)
[2020-07-29] MEDS: ASPIRIN 81 MG TAB CHEW PO SCH (15:18)
== END 2020-07-29 19:08 | disposition home or self-care (01) | DRG 281 ==
LOC: ED 05:19 → 4A 10:10 → OBSVTOIN 07-25 12:35
PROVIDERS: ADMIT Internal Medicine; ATTEND Internal Medicine
PROC: 4A023N7 Measurement of Cardiac Sampling and Pressure, Left Heart, Percutaneous Approach (ICD-10-PCS; principal; 2020-07-29)
PROC: B211YZZ Fluoroscopy of Multiple Coronary Arteries using Other Contrast (ICD-10-PCS; 2020-07-29)
PROC: B213YZZ Fluoroscopy of Multiple Coronary Artery Bypass Grafts using Other Contrast (ICD-10-PCS; 2020-07-29)
PROC: B218YZZ Fluoroscopy of Left Internal Mammary Bypass Graft using Other Contrast (ICD-10-PCS; 2020-07-29)
PROC: B215YZZ Fluoroscopy of Left Heart using Other Contrast (ICD-10-PCS; 2020-07-29)
DX: I21.4 Non-ST elevation (NSTEMI) myocardial infarction (principal); E87.1 Hypo-osmolality and hyponatremia; I16.1 Hypertensive emergency; N17.9 Acute kidney failure, unspecified; I25.10 Atherosclerotic heart disease of native coronary artery without angina pectoris; E11.51 Type 2 diabetes mellitus with diabetic peripheral angiopathy without gangrene; E11.22 Type 2 diabetes mellitus with diabetic chronic kidney disease; M18.30 Unilateral post-traumatic osteoarthritis of first carpometacarpal joint, unspecified hand; E11.21 Type 2 diabetes mellitus with diabetic nephropathy; E78.5 Hyperlipidemia, unspecified; I12.9 Hypertensive chronic kidney disease with stage 1 through stage 4 chronic kidney disease, or unspecified chronic kidney disease; E11.65 Type 2 diabetes mellitus with hyperglycemia; M19.90 Unspecified osteoarthritis, unspecified site; E66.9 Obesity, unspecified; Z82.49 Family history of ischemic heart disease and other diseases of the circulatory system; Z88.0 Allergy status to penicillin; Z86.73 Personal history of transient ischemic attack (TIA), and cerebral infarction without residual deficits; Z95.5 Presence of coronary angioplasty implant and graft; Z95.1 Presence of aortocoronary bypass graft; Z88.5 Allergy status to narcotic agent; Z79.4 Long term (current) use of insulin; Z79.899 Other long term (current) drug therapy; Z91.14 Patient's other noncompliance with medication regimen; Z89.511 Acquired absence of right leg below knee; Z68.31 Body mass index [BMI] 31.0-31.9, adult; I25.2 Old myocardial infarction; Z72.89 Other problems related to lifestyle
CPT/HCPCS: 36415; 71045; 80048; 80061; 82550; 82570; 82962; 83036; 83735; 84156; 84300; 84484; 85014; 85018; 85025; 85027; 85049; 85520; 85610; 85730; 93005; 93459; 96360; 99285; G0378; A9270-GY; C1894; J1170; J1644; J1815; J2250; J2270; J2405; J3010; J7040; J7120; Q0162; Q9967

== ENCOUNTER 2021-08-06 18:11 | Emergency (ER) | payer MEDICAID ==
[2021-08-06] MEDS ORDERED: SODIUM CHLORIDE 0.9% 1000 ML 1,000 ML IV ONE (23:48)
--- NOTE | 2021-08-06 23:52 | Emergency Department Report ---
ED General Adult HPI - General Chief complaint: Hyperglycemia Stated complaint: ELEVATED BLOOD SUGAR Time Seen by Provider: 08/06/21 23:43 Source: patient, EMS Mode of arrival: Stretcher Limitations: No Limitations - History of Present Illness Initial comments: Patient is 56-year-old female with history of diabetes, coronary artery disease and chronic kidney disease. Patient brought to the emergency room via EMS from her primary care office for evaluation of hyperglycemia. EMS reported that patient blood glucose at her doctor's office was more than 600. Patient stated that she forgot to take her Lantus for the last 2 days. She also admitted that she has been eating a lot of bread and pasta recently. Patient currently denying any symptoms. - Related Data Home Medications Medication Instructions Recorded Confirmed Last Taken Insulin Aspart (Nf) [NovoLOG 12 unit SQ TID 07/24/20 07/24/20 Unknown Flexpen] Insulin Glargine,Hum.rec.anlog 50 unit SQ QHS 07/24/20 07/24/20 Unknown [Lantus Solostar] Pantoprazole Sodium 40 mg PO QAM 07/24/20 07/24/20 Unknown Previous Rx's Medication Instructions Recorded Last Taken Type Aspirin [Aspirin BABY CHEW TAB] 81 mg PO QDAY #30 tab.chew 07/29/20 Unknown Rx Atorvastatin Calcium [Lipitor] 80 mg PO QHS #30 07/29/20 Unknown Rx ISOSORBIDE MONOnitrate [Imdur ER] 60 mg PO QDAY #30 tablet 07/29/20 Unknown Rx Melatonin [Melatonin 5MG TAB] 5 mg PO QHS PRN #20 tablet 07/29/20 Unknown Rx Ranolazine ER [Ranexa ER] 500 mg PO BID #60 tablet 07/29/20 Unknown Rx amLODIPine 5 mg PO DAILY #30 tab 07/29/20 Unknown Rx carvediloL [Coreg] 25 mg PO BID #60 tablet 07/29/20 Unknown Rx hydrALAZINE [Apresoline TAB] 25 mg PO TID #90 tablet 07/29/20 Unknown Rx methOCARBAMOL [Robaxin TAB] 500 mg PO BID PRN #20 tablet 07/29/20 Unknown Rx Allergies Allergy/AdvReac Type Severity Reaction Status Date / Time metformin Allergy Unknown Verified 06/30/20 14:45 oxycodone [From Percocet] Allergy Vomiting Verified 06/30/20 14:45 Penicillins Allergy Unknown Verified 06/30/20 14:45 ED Review of Systems ROS: Stated complaint: ELEVATED BLOOD SUGAR Other details as noted in HPI Comment: All other systems reviewed and negative Constitutional: denies: chills, fever Respiratory: denies: cough, shortness of breath, SOB with exertion Cardiovascular: denies: chest pain, palpitations, dyspnea on exertion Gastrointestinal: denies: abdominal pain, nausea, vomiting, diarrhea, constipation, hematemesis Musculoskeletal: denies: back pain Neurological: denies: headache, weakness, numbness, paresthesias, confusion Psychiatric: denies: homicidal thoughts, suicidal thoughts ED Past Medical Hx - Past Medical History Hx Hypertension: Yes Hx CVA: Yes Hx Heart Attack/AMI: Yes Hx Diabetes: Yes Hx Arthritis: Yes Additional medical history: BKA 04/2020 - Surgical History Hx Open Heart Surgery: Yes (CABBGE) - Social History Smoking Status: Never Smoker - Medications Home Medications: Home Medications Medication Instructions Recorded Confirmed Last Taken Type Insulin Aspart (Nf) [NovoLOG 12 unit SQ TID 07/24/20 07/24/20 Unknown History Flexpen] Insulin Glargine,Hum.rec.anlog 50 unit SQ QHS 07/24/20 07/24/20 Unknown History [Lantus Solostar] Pantoprazole Sodium 40 mg PO QAM 07/24/20 07/24/20 Unknown History Aspirin [Aspirin BABY CHEW TAB] 81 mg PO QDAY #30 tab.chew 07/29/20 Unknown Rx Atorvastatin Calcium [Lipitor] 80 mg PO QHS #30 07/29/20 Unknown Rx ISOSORBIDE MONOnitrate [Imdur ER] 60 mg PO QDAY #30 tablet 07/29/20 Unknown Rx Melatonin [Melatonin 5MG TAB] 5 mg PO QHS PRN #20 tablet 07/29/20 Unknown Rx Ranolazine ER [Ranexa ER] 500 mg PO BID #60 tablet 07/29/20 Unknown Rx amLODIPine 5 mg PO DAILY #30 tab 07/29/20 Unknown Rx carvediloL [Coreg] 25 mg PO BID #60 tablet 07/29/20 Unknown Rx hydrALAZINE [Apresoline TAB] 25 mg PO TID #90 tablet 07/29/20 Unknown Rx methOCARBAMOL [Robaxin TAB] 500 mg PO BID PRN #20 tablet 07/29/20 Unknown Rx ED Physical Exam - General Limitations: No Limitations General appearance: alert, in no apparent distress - Head Head exam: Present: atraumatic, normocephalic, normal inspection - Eye Eye exam: Present: normal appearance - ENT ENT exam: Present: normal exam, normal orophraynx, mucous membranes moist - Neck Neck exam: Present: normal inspection, full ROM. Absent: tenderness, menin gismus - Respiratory Respiratory exam: Present: normal lung sounds bilaterally - Cardiovascular Cardiovascular Exam: Present: regular rate, normal rhythm, normal heart sounds - GI/Abdominal GI/Abdominal exam: Present: soft, normal bowel sounds. Absent: distended, tenderness, guarding, rebound, rigid, organomegaly, mass, bruit, pulsatile mass, hernia - Extremities Exam Extremities exam: Present: other (Right below-knee amputation.) - Back Exam Back exam: Present: normal inspection. Absent: CVA tenderness (R), CVA tenderness (L) - Neurological Exam Neurological exam: Present: alert, oriented X3, CN II-XII intact - Psychiatric Psychiatric exam: Present: normal mood. Absent: homicidal ideation, suicidal ideation - Skin Skin exam: Present: warm, intact, normal color ED Course Vital Signs 08/06/21 08/06/21 08/07/21 19:36 23:58 00:00 Temperature 98.5 F Pulse Rate 87 109 H Respiratory 18 Rate Blood Pressure 176/94 Blood Pressure 178/98 [Left] O2 Sat by Pulse 98 99 100 Oximetry 08/07/21 08/07/21 08/07/21 00:11 00:16 01:24 Temperature 97.8 F Pulse Rate 84 82 88 Respiratory 16 Rate Blood Pressure 178/93 179/100 Blood Pressure 179/100 [Left] O2 Sat by Pulse 100 100 100 Oximetry ED Medical Decision Making - Lab Data Result diagrams: 08/07/21 00:04 08/07/21 00:04 - EKG Data -: EKG Interpreted by [place] EKG shows normal: sinus rhythm Rate: normal - EKG Data Interpretation: no acute changes - Medical Decision Making Patient is 56-year-old female with history of diabetes, coronary artery disease and chronic kidney disease. Patient brought to the emergency room via EMS from her primary care office for evaluation of hyperglycemia. EMS reported that patient blood glucose at her doctor's office was more than 600. Patient stated that she forgot to take her Lantus for the last 2 days. She also admitted that she has been eating a lot of bread and pasta recently. Patient currently denying any symptoms. Patient remained stable in the ER with a stable vital sign. Blood glucose corrected by self. Labs reviewed and is unremarkable except for chronic elevation of creatinine. Patient advised to follow-up with her primary doctor in the next 2 to 3 days and advised to be compliant with her medication and diet. Patient advised to return to the ER if she develop any symptoms. Critical care attestation.: If time is entered above; I have spent that time in minutes in the direct care of this critically ill patient, excluding procedure time. ED Disposition Clinical Impression: Acute hyperglycemia Disposition: 01 HOME / SELF CARE / HOMELESS Is pt being admited?: No Condition: Stable Instructions: Hyperglycemia, [id number] Referrals: PRIMARY CARE, [Referring] - 3-5 Days
[2021-08-07 00:04] LABS: Bilirubin,Urine NEG (Negative); Blood,Urine SM (Negative); Color,Urine Yellow (Yellow); Urobilinogen,Urine < 2.0 mg/dL (<2.0)
[2021-08-07 00:10] LABS: Protein,Urine >500 mg/dL (Negative)
[2021-08-07 00:19] LABS: Basophils # (Auto) 0.1 K/mm3 (0.0-0.1); Basophils % (Auto) 1.3 % (0.0-1.8); Eosinophils # (Auto) 0.2 K/mm3 (0.0-0.4); Eosinophils % (Auto) 2.9 % (0.0-4.3); Hematocrit 32.7 % (30.3-42.9); Hemoglobin 11.2 gm/dl (10.1-14.3); Lymphocytes # (Auto) 3.5 K/mm3 (1.2-5.4); Lymphocytes % (Auto) 43.5 % (13.4-35.0); Mean Corpuscular HGB Conc 34 % (30-34); Mean Corpuscular Volume 83 fl (79-97); Monocytes # (Auto) 0.6 K/mm3 (0.0-0.8); Monocytes % (Auto) 6.8 % (0.0-7.3); Platelet Count 340 K/mm3 (140-440); Red Blood Count 3.96 M/mm3 (3.65-5.03); Red Cell Distribution Width 13.1 % (13.2-15.2)
[2021-08-07 01:19] LABS: Calcium 9.3 mg/dL (8.4-10.2)
[2021-08-07 02:09] LABS: Chol/HDL Ratio 4.58 %
[2021-08-07 03:38] VITALS: BP 196/97
--- NOTE | 2021-08-07 11:28 | Electrocardiograph Report ---
[facility], [place] Test Date: 2021-08-07 Test Time: 00:14:24 Pat Name: GISEL HUITRON Department: Room: Gender: F Manager Pet: MAXIMILIANO : 1965 Requested By: FAUSTO LONGORIA Order Number: [id number] Reading MD: Fady Osorio Measurements Intervals [place] Rate: 81 P: 64 LA: 151 QRS: 3 QRSD: 94 T: 148 QT: 404 QTc: 471 Interpretive Statements Sinus rhythm LVH with secondary repolarization abnormality Compared to ECG 07/26/2020 17:15:10 Atrial premature complex(es) no longer present Electronically Signed On 08-07-2021 11:27:27 EDT by Fady Osorio
== END 2021-08-07 03:25 | disposition home or self-care (01) ==
LOC: ED 18:11
DX: E11.65 Type 2 diabetes mellitus with hyperglycemia (principal); I10 Essential (primary) hypertension; I21.9 Acute myocardial infarction, unspecified; M19.90 Unspecified osteoarthritis, unspecified site; Z86.73 Personal history of transient ischemic attack (TIA), and cerebral infarction without residual deficits; Z88.0 Allergy status to penicillin; Z91.09 Other allergy status, other than to drugs and biological substances; Z79.899 Other long term (current) drug therapy
CPT/HCPCS: 36415; 80048; 80061; 81001; 82962; 84484; 85025; 93005; 99284